=== PATIENT | male | born 1960 | race Caucasian/White ===

== ENCOUNTER 2020-03-23 09:00 | Outpatient (CLI) | payer OTHER, SELFPAY ==
[2020-03-23 09:19] LABS: Add Urine Microscopic? YES; Appearance Urine Clear (Clear); Basophils Absolute Auto 0.09 K/mm3 (0.00-0.10); Basophils Percent Auto 1.2 % (0.0-1.0); Bilirubin Urine Negative (Negative); Blood Urine Negative (Negative); Color Urine Yellow (Yellow); Eosinophils Percent Auto 1.3 % (1.0-6.0); Glucose Urine UA Negative (Negative); Hematocrit 41.5 % (40.0-54.0); Hemoglobin 14.4 g/dL (14.0-18.0); Immature Granulocyte Absolute 0.03 K/mm3 (0.00-0.00); Immature Granulocyte Percent A 0.4 % (0.0-0.0); Ketones Urine Trace (Negative); Leukocyte Esterase Ur Negative (Negative); Lymphocytes Absolute Auto 1.54 K/mm3 (1.10-4.50); Lymphocytes Percent Auto 19.8 % (18.0-42.0); Mean Corpuscular HGB Conc 34.7 g/dL (32.0-36.0); Mean Corpuscular Hemoglobin 31.3 pg (27.0-31.0); Mean Corpuscular Volume 90.2 fL (78.0-102.0); Mean Platelet Volume 7.9 fl (8.7-11.0); Monocytes Absolute Auto 0.91 K/mm3 (0.10-0.90); Monocytes Percent Auto 11.7 % (2.0-11.0); Neutrophils Absolute Auto 5.1 K/mm3 (1.7-7.2); Neutrophils Percent Auto 65.6 % (50.0-70.0); Nitrate Urine Negative (Negative); Platelet Count Result 311 K/mm3 (150-420); Protein Urine Negative (Negative); Red Cell Distribution Width 13.4 % (11.6-14.4); White Blood Count 7.8 K/mm3 (4.8-10.8); pH Urine 7.5 (5.0-8.0)
[2020-03-23 09:32] LABS: RBC Urine 0-2 /hpf (0-2); WBC Urine 0-3 /hpf (0-3)
[2020-03-23 09:33] LABS: Bacteria Urine None seen /hpf
[2020-03-23 10:23] LABS: Alanine Aminotransferase 88 U/L (16-63); Albumin Level 4.3 g/dL (3.4-5.0); Alkaline Phosphatase 67 U/L (46-116); Anion Gap 15.1 mmol/L (7-16); Aspartate Amino Transferase 87 U/L (15-37); Bilirubin,Total 0.7 mg/dL (0.00-1.00); Blood Urea Nitrogen 6 mg/dL (7-18); Calcium 9.4 mg/dL (8.5-10.1); Carbon Dioxide 28 mmol/L (21-32); Chloride 88 mmol/L (98-108); Cholesterol 166 mg/dL (0-200); Estimated Glomerular Filt Rate > 60; Glucose 95 mg/dL (70-99); HDL Direct 108 mg/dL (40-60); LDL Cholesterol Calculated 50 mg/dL (<130); Osmolality Calculated 259 mOsm/kg (285-295); Potassium 5.1 mmol/L (3.5-5.1); Prostate Specific Antigen 0.3 ng/mL (< OR = 4.0); Sodium 126 mmol/L (136-145); Total Protein 7.3 g/dL (6.4-8.2); Triglycerides 39 mg/dL (0-150)
== END 2020-03-23 09:01 | disposition home or self-care (01) ==
PROVIDERS: PCP Internal Medicine; Visit Provider Internal Medicine
DX: I73.9 Peripheral vascular disease, unspecified (principal); I10 Essential (primary) hypertension; Z12.5 Encounter for screening for malignant neoplasm of prostate; Z00.00 Encounter for general adult medical examination without abnormal findings
CPT/HCPCS: 36415; 80053; 80061; 81001; 84153; 85025; G0103

== ENCOUNTER 2020-03-30 14:01 | Outpatient (CLI) | payer OTHER, SELFPAY ==
[2020-03-30 14:15] LABS: Basophils Absolute Auto 0.03 K/mm3 (0.00-0.10); Basophils Percent Auto 0.4 % (0.0-1.0); Eosinophils Absolute Auto 0.14 K/mm3 (0.02-0.50); Eosinophils Percent Auto 1.9 % (1.0-6.0); Hematocrit 38.3 % (40.0-54.0); Hemoglobin 14.2 g/dL (14.0-18.0); Immature Granulocyte Absolute 0.05 K/mm3 (0.00-0.00); Immature Granulocyte Percent A 0.7 % (0.0-0.0); Lymphocytes Absolute Auto 1.42 K/mm3 (1.10-4.50); Lymphocytes Percent Auto 19.4 % (18.0-42.0); Mean Corpuscular HGB Conc 37.1 g/dL (32.0-36.0); Mean Corpuscular Hemoglobin 31.3 pg (27.0-31.0); Mean Corpuscular Volume 84.5 fL (78.0-102.0); Mean Platelet Volume 7.9 fl (8.7-11.0); Monocytes Absolute Auto 0.98 K/mm3 (0.10-0.90); Monocytes Percent Auto 13.4 % (2.0-11.0); Neutrophils Absolute Auto 4.7 K/mm3 (1.7-7.2); Neutrophils Percent Auto 64.2 % (50.0-70.0); Platelet Count Result 288 K/mm3 (150-420); Red Blood Count 4.53 M/mm3 (4.70-6.10); White Blood Count 7.3 K/mm3 (4.8-10.8)
[2020-03-30 15:02] LABS: Alanine Aminotransferase 51 U/L (16-63); Albumin Level 4.2 g/dL (3.4-5.0); Alkaline Phosphatase 64 U/L (46-116); Aspartate Amino Transferase 30 U/L (15-37); Bilirubin,Total 0.8 mg/dL (0.00-1.00); Blood Urea Nitrogen 9 mg/dL (7-18); Calcium 9.1 mg/dL (8.5-10.1); Carbon Dioxide 27 mmol/L (21-32); Estimated Glomerular Filt Rate > 60; Glucose 96 mg/dL (70-99); Magnesium 1.8 mg/dL (1.8-2.4); Phosphorus 3.4 mg/dL (2.6-4.7)
[2020-03-30 15:08] LABS: Chloride 74 mmol/L (98-108); Potassium 3.9 mmol/L (3.5-5.1)
[2020-03-30 15:24] LABS: Anion Gap 12.9 mmol/L (7-16); Osmolality Calculated 228 mOsm/kg (285-295); Sodium 110 mmol/L (136-145)
== END 2020-03-30 14:02 | disposition home or self-care (01) ==
LOC: CHSLAB 14:03
PROVIDERS: PCP Internal Medicine; Visit Provider Internal Medicine
DX: R19.7 Diarrhea, unspecified (principal); R11.10 Vomiting, unspecified
CPT/HCPCS: 36415; 80053; 83735; 84100; 85025

== ENCOUNTER 2020-03-30 15:46 | Inpatient (IN) | payer OTHER, SELFPAY ==
[2020-03-30] VITALS (7 sets, daily range): BP systolic 125–166; BP diastolic 86–95; PULSE 84–91; RESP 16–20; TEMP 36.6–37.2; O2SAT 98–100; BMI 19.5
--- NOTE | 2020-03-30 16:18 | ED.GENADULT ---
HPI - General Adult General Chief complaint: Recheck/Abnormal Lab/Rx Stated complaint: sent from [place], low sodium Source: patient and family Mode of arrival: ambulatory Limitations: no limitations History of Present Illness HPI narrative: 59-year-old male patient was sent to the ER by his primary care physician for treatment of low sodium. The patient states that for the last week or so he has not been feeling well, has had multiple episodes of diarrhea, nausea and abdominal cramps. States that he has been vomiting for 3-4 days during his illness but none in the last 4 5 days. He states that his fluid intake has been minimal. Patient denies any episodes of dizziness or passing-out . patient states that he is a smoker of a pack and a half every day and states that he has cut back and used to smoke much more than that. Patient admits to drinking 10-15 beers every day but has not had any alcoholic beverage in the last 5 days according to the patient as well as his family. He denies any chest pain, abdominal pain, or shortness of breath at this time. Patient went to see his doctor this morning and had outpatient labs done around 2:00 a.m. and he was called back to return to the ER for some IV fluids because his sodium was noted to be low . Related Data Home Medications Medication Instructions Recorded Confirmed lisinopril 20 mg PO DAILY 03/30/20 03/30/20 Allergies Allergy/AdvReac Type Severity Reaction Status Date / Time NO KNOWN DRUG ALLERGIES Allergy Y Uncoded 03/24/03 15:34 (Class Allergy) Review of Systems Review of Systems: All systems reviewed & are unremarkable except as noted in HPI and below Constitutional: Constitutional: Reports as per HPI, Reports fatigue and Reports weakness Eyes: Eyes: Reports no additional eye complaints ENT: Reports system reviewed and no additional complaints, except as documented Gastrointestinal: Gastrointestinal: Reports as per HPI and Reports no additional gastrointestinal complaints Genitourinary: Genitourinary: Reports no additional male genitourinary complaints Musculoskeletal: Musculoskeletal: Reports no additional musculoskeletal complaints Integumentary/Breasts: Skin/Breast: Reports system reviewed and no additional complaints, except as docu Neurologic: Reports system reviewed and no additional complaints, except as documented Psychiatric: Psychiatric: Reports anxiety Endocrine: Endocrine: Reports no additional endocrine complaints Hematologic/Lymphatic: Hematologic/Lymphatic: Reports no additional hematologic/lymphatic complaints Allergic/Immunologic: Allergic/Immunologic: Reports no additional allergic/immunologic complaints [facility] Past Medical History Medical History (Updated 03/30/20 @ 16:34 by Gris Hyde MD) Anxiety Hypertension Surgical History Surgical History (Updated 03/30/20 @ 16:34 by Gris Hyde MD) History of aorto-femoral bypass Family History Family History (Updated 03/25/18 @ 08:07 by DOCTOR UNKNOWN) Father Diabetes mellitus Sibling Family history of hypercholesterolemia Hypertension Family history of coronary artery disease Social History Social History Smoking status: Current every day smoker Alcohol intake: current Exam Const: General: no acute distress, alert and ill appearing Nutritional Appearance: thin Orientation/consciousness: patient oriented x3 HENMT: Head: normal to inspection Eyes: Conjunctivae: conjunctivae normal Pupils: Equal, round and reactive pupils present EOM: EOMs intact bilaterally Neck: Neck: normal visual inspection and no lymphadenopathy Chest: Chest palpation & inspection: normal inspection of the chest Resp: Effort & Inspection: normal respiratory effort Auscultation: clear to auscultation bilaterally Cardio: Rate: regular rate Rhythm: regular rhythm GI: GI Palp: Yes Soft to palpation Percussion: Yes normal to percussion Auscultation: normal bowel sound
[2020-03-30] MEDS: SODIUM CHLORIDE 0.9% IV 1,000 ML 999 ML IV CONT (16:19)
--- NOTE | 2020-03-30 16:22 | ECG_ITS ---
Measurements Intervals [place] Rate: 86 P: -64 VT: 140 QRS: -80 QRSD: 86 T: 71 QT: 359 QTc: 430 Interpretive Statements SINUS OR ECTOPIC ATRIAL RHYTHM INCOMPLETE RIGHT BUNDLE BRANCH BLOCK BASELINE ARTIFACT- II, III, AVF BORDERLINE ECG Electronically Signed On 03-30-2020 16:57:39 CDT by True Olvera D.O.
[2020-03-30 17:47] LABS: Anion Gap 14.4 mmol/L (7-16); Blood Urea Nitrogen 9 mg/dL (7-18); Calcium 8.4 mg/dL (8.5-10.1); Carbon Dioxide 23 mmol/L (21-32); Chloride 77 mmol/L (98-108); Estimated CRCL calculation 81 ml/min; Estimated Glomerular Filt Rate > 60; Glucose 87 mg/dL (70-99); Osmolality Calculated 229 mOsm/kg (285-295); Potassium 3.4 mmol/L (3.5-5.1)
[2020-03-30 17:48] LABS: Sodium 111 mmol/L (136-145)
--- NOTE | 2020-03-30 18:41 | ADMGEN ---
This patient, Andrea Kearns, was admitted to 2nd Floor Room 204-2. Patient/family oriented to hospital policies and general routines including ID bracelet, bed and alarms, visiting hours, pain management, procedures, bathroom and other care routines, personal items, smoking policy, room service/diet, and visiting hours. Valuables list has been completed. Information on how to activate the Rapid Response Team has been discussed. Patient/Family are encouraged to report perceived risks to care and to ask questions if they do not understand what they are told or what they should do.
[2020-03-30] MEDS: SODIUM CHLORIDE 0.9% IV 1,000 ML 120 ML IV CONT (19:04)
--- NOTE | 2020-03-30 23:44 | PC.NURSE ---
Denies discomfort. IV continues 120mh hr 0.9NS. Needed objects in reach.
--- NOTE | 2020-03-31 00:13 | PC.NURSE ---
Sleeping, resp even. IV continues 120ml hr 0.9NS.
--- NOTE | 2020-03-31 01:02 | PC.NURSE ---
Dr. Hyde called to give new medication orders on pt. Orders received and noted.
[2020-03-31] MEDS: POTASSIUM CHLORIDE 20 MEQ TABLET 40 MEQ PO (01:21)
--- NOTE | 2020-03-31 01:24 | PC.NURSE ---
40meq KCL po given per order @ this time. IV continues 0.9NS @ 120ml hr
--- NOTE | 2020-03-31 02:23 | PC.NURSE ---
Sleeping resp even IV continues 12-0ml hr 0.9NS.
[2020-03-31] MEDS: SODIUM CHLORIDE 0.9% IV 1,000 ML 120 ML IV CONT ×3 (03:20→20:52)
--- NOTE | 2020-03-31 03:28 | PC.NURSE ---
New IV bag of fluids up @ this time. 300ml restrection of water for this shift continues.
[2020-03-31 04:00] VITALS: BP 136/77; PULSE 84; RESP 16; TEMP 36.6; O2SAT 97
[2020-03-31 05:51] LABS: Add Urine Microscopic? YES; Appearance Urine Clear (Clear); Bilirubin Urine Negative (Negative); Blood Urine Negative (Negative); Color Urine Yellow (Yellow); Glucose Urine UA Negative (Negative); Ketones Urine 1+ (Negative); Leukocyte Esterase Ur Negative (Negative); Nitrate Urine Negative (Negative); Protein Urine Negative (Negative); pH Urine 6.5 (5.0-8.0)
--- NOTE | 2020-03-31 05:59 | PC.NURSE ---
Up to Bathroom, assist of one. Gait steady No tremors noted. Pt voided lg amt carola urine & experlled lg brown liquid & formed pieces of stool. Pt stated he is feeling better this am. IV continues 120ml 0.9NS. Urine specimen to lab.
[2020-03-31 06:03] LABS: Anion Gap 11.8 mmol/L (7-16); Blood Urea Nitrogen 6 mg/dL (7-18); Carbon Dioxide 23 mmol/L (21-32); Chloride 84 mmol/L (98-108); Estimated CRCL calculation 86 ml/min; Estimated Glomerular Filt Rate > 60; Glucose 90 mg/dL (70-99); Osmolality Calculated 237 mOsm/kg (285-295); Potassium 3.8 mmol/L (3.5-5.1)
[2020-03-31 06:06] LABS: RBC Urine 0-2 /hpf (0-2); Sodium 115 mmol/L (136-145); Squamous Epithelial Cell Urine None seen /hpf (Few); WBC Urine 0-3 /hpf (0-3)
[2020-03-31 06:07] LABS: Bacteria Urine None seen /hpf
--- NOTE | 2020-03-31 06:07 | PC.NURSE ---
Lab called to report critical sodium value of 115.
[2020-03-31 07:40] VITALS: BP 157/95; PULSE 87; RESP 16; TEMP 36.6; O2SAT 99
[2020-03-31 08:50] LABS: Alanine Aminotransferase 50 U/L (16-63); Albumin Level 3.5 g/dL (3.4-5.0); Alkaline Phosphatase 53 U/L (46-116); Aspartate Amino Transferase 34 U/L (15-37); Bilirubin Direct 0.2 mg/dL (0-0.2); Bilirubin,Total 0.7 mg/dL (0.00-1.00); Magnesium 1.7 mg/dL (1.8-2.4); Total Protein 6.1 g/dL (6.4-8.2)
--- NOTE | 2020-03-31 09:20 | PM.IMHP ---
H&P: HPI History of Present Illness Chief complaint: hyponatremia Narrative: Andrea Kearns is a 59 year old male that was sent to the ED from his primary care physician Dr. Garrison office due to hyponatremia. According to the patient for approximately 1 week he has been feeling weak with nausea vomiting and abdominal pain. patient noted that he did not do anything at to relieve the symptoms. he did make an appointment with his primary care physician. patient noted that previously before admission he had a combination of nausea vomiting diarrhea and abdominal pain. He does drink 10-15 beers a day but due to his nausea vomiting and abdominal pain has not been able to drink for the last couple of days. Patient noted that he has never experienced these symptoms before. He also noted that he was lightheaded for the last couple days sitting and standing. Patient's vital signs are 136/77, 84, 16, 98 and 97% on room air. While in the ED an EKG was completed normal sinus rhythm the patient received 1 L of fluids. patient is being admitted for dehydration and hyponatremia. Patient denies SOB, CP, palpitation, extremity numbness, lightheadness, dizziness, constipation, diarrhea, nausea vomiting, abdominal pain, chills or fever. Review of Systems Review of Systems: Narrative: CONSTITUTIONAL :No weight loss, fever, chills, weakness or fatigue.: HEENT: Eyes: No diplopia or blurred vision. ENT: No earache, sore throat or runny nose. CARDIOVASCULAR: No pressure, squeezing, strangling, tightness, heaviness or aching about the chest, neck, axilla or epigastrium. RESPIRATORY: No cough, shortness of breath, PND or orthopnea. GASTROINTESTINAL: No nausea, vomiting or diarrhea. GENITOURINARY: No dysuria, frequency or urgency. MUSCULOSKELETAL: No muscle, back pain, joint pain or stiffness. SKIN: No change in skin, hair or nails. NEUROLOGIC: No paresthesias, fasciculations, seizures or weakness. PSYCHIATRIC: No disorder of thought or mood. ENDOCRINE: No heat or cold intolerance, polyuria or polydipsia. HEMATOLOGICAL: No easy bruising or bleeding. [facility] Past Medical History Medical History (Updated 03/31/20 @ 09:46 by MARANDA Jaime) Alcohol abuse Anxiety Hypertension Hyponatremia Surgical History Surgical History (Updated 03/30/20 @ 16:34 by Gris Hyde MD) History of aorto-femoral bypass Family History Family History (Updated 03/25/18 @ 08:07 by DOCTOR UNKNOWN) Father Diabetes mellitus Sibling Family history of hypercholesterolemia Hypertension Family history of coronary artery disease Social History Social History Smoking packs per day: 1 Smoking cigarettes per day: 20.0 Smoking status: Current every day smoker Tobacco type: cigarettes Alcohol intake: current Drinks per week: 15 Substance use: never Gender identity (if verbalized by the patient): Male Spiritual care concerns: No Meds Home Medications and Allergies Home Medications Medication Instructions Recorded Confirmed Type lisinopril 20 mg PO DAILY 03/30/20 03/30/20 History Allergies Allergy/AdvReac Type Severity Reaction Status Date / Time NO KNOWN DRUG ALLERGIES Allergy Y Uncoded 03/24/03 15:34 (Class Allergy) Vital Signs Vital Signs - 24 hr 03/30/20 16:00 03/30/20 17:23 03/30/20 18:19 Temperature 97.8 F Pulse Rate 89 89 90 Respiratory Rate 20 18 18 Blood Pressure 166/90 H 156/86 H 143/92 H Pulse Oximetry 100 99 03/30/20 18:30 03/30/20 20:00 03/30/20 22:00 Temperature 98 F 98.9 F 98.8 F Pulse Rate 91 86 88 Respiratory Rate 18 16 16 Blood Pressure 156/93 H 125/86 160/95 H Pulse Oximetry 100 98 98 03/30/20 23:42 03/31/20 04:00 03/31/20 07:40 Temperature 97.9 F 98 F 97.8 F Pulse Rate 84 84 87 Respiratory Rate 16 16 16 Blood Pressure 157/95 H 136/77 157/95 H Pulse Oximetry 99 97 99 Exam Narrative: Exam Narrative: General: frail male sitting up in bed no acute
[2020-03-31] MEDS: lisinopriL 20 MG TABLET PO (09:37)
[2020-03-31] MEDS: ENOXAPARIN 40 MG/0.4 ML SYRINGE SUB-Q (10:06)
[2020-03-31] MEDS: THIAMINE HCL 100 MG TABLET PO (10:06)
[2020-03-31] MEDS: FOLIC ACID 1 MG TABLET PO (10:07)
[2020-03-31] MEDS: MAGNESIUM SULF 2 GM/WATER 50ML 2 GM/50 ML BAG IVPB (10:07)
[2020-03-31] MEDS: PANTOPRAZOLE SOD SESQUIHYDRATE 20 MG TAB PO (10:24)
--- NOTE | 2020-03-31 12:34 | PCDIET ---
Changed to IP status per Linda, Care Coordination.
[2020-03-31 13:39] LABS: Hematocrit 32.8 % (40.0-54.0); Mean Corpuscular HGB Conc 36.6 g/dL (32.0-36.0); Mean Corpuscular Hemoglobin 31.7 pg (27.0-31.0); Mean Corpuscular Volume 86.5 fL (78.0-102.0); Mean Platelet Volume 7.8 fl (8.7-11.0); Platelet Count Result 220 K/mm3 (150-420); Red Blood Count 3.79 M/mm3 (4.70-6.10); Red Cell Distribution Width 12.2 % (11.6-14.4); White Blood Count 6.1 K/mm3 (4.8-10.8)
[2020-03-31 14:09] LABS: Alanine Aminotransferase 44 U/L (16-63); Albumin Level 3.2 g/dL (3.4-5.0); Alkaline Phosphatase 56 U/L (46-116); Anion Gap 11.5 mmol/L (7-16); Aspartate Amino Transferase 27 U/L (15-37); Bilirubin,Total 0.4 mg/dL (0.00-1.00); Blood Urea Nitrogen 6 mg/dL (7-18); Calcium 7.8 mg/dL (8.5-10.1); Carbon Dioxide 24 mmol/L (21-32); Chloride 88 mmol/L (98-108); Estimated CRCL calculation 71 ml/min; Estimated Glomerular Filt Rate > 60; Glucose 109 mg/dL (70-99); Osmolality Calculated 248 mOsm/kg (285-295); Potassium 3.5 mmol/L (3.5-5.1); Total Protein 5.7 g/dL (6.4-8.2)
[2020-03-31 14:15] LABS: Magnesium 2.1 mg/dL (1.8-2.4); Sodium 120 mmol/L (136-145)
--- NOTE | 2020-03-31 14:15 | PC.NURSE ---
RIGOBERTO PURI HEADING UP MACHINE OPERATOR NOTIFIED OF CRIITICAL LOW SODIUM 120.
[2020-03-31 16:00] VITALS: BP 156/88; PULSE 82; RESP 16; TEMP 36.8; O2SAT 98
[2020-03-31] MEDS: traZODone HCL 25 MG TABLET PO (20:48)
--- NOTE | 2020-03-31 23:52 | PM.EVENT ---
Event Note Event Note Event Note: I have examined the patient and reviewed the chart. I discussed the patient's care with Martha Leach APN and agree with her assessment and plan.
[2020-04-01] VITALS: BP 119/64; PULSE 76; RESP 16; TEMP 36.8; O2SAT 97
[2020-04-01 05:29] LABS: Basophils Absolute Auto 0.05 K/mm3 (0.00-0.10); Basophils Percent Auto 0.9 % (0.0-1.0); Eosinophils Absolute Auto 0.09 K/mm3 (0.02-0.50); Eosinophils Percent Auto 1.6 % (1.0-6.0); Hematocrit 34.3 % (40.0-54.0); Hemoglobin 12.3 g/dL (14.0-18.0); Immature Granulocyte Absolute 0.03 K/mm3 (0.00-0.00); Immature Granulocyte Percent A 0.5 % (0.0-0.0); Lymphocytes Absolute Auto 1.28 K/mm3 (1.10-4.50); Lymphocytes Percent Auto 22.5 % (18.0-42.0); Mean Corpuscular HGB Conc 35.9 g/dL (32.0-36.0); Mean Corpuscular Hemoglobin 31.5 pg (27.0-31.0); Mean Corpuscular Volume 87.9 fL (78.0-102.0); Mean Platelet Volume 7.8 fl (8.7-11.0); Monocytes Absolute Auto 0.74 K/mm3 (0.10-0.90); Neutrophils Absolute Auto 3.5 K/mm3 (1.7-7.2); Neutrophils Percent Auto 61.5 % (50.0-70.0); Platelet Count Result 244 K/mm3 (150-420); Red Cell Distribution Width 12.4 % (11.6-14.4); White Blood Count 5.7 K/mm3 (4.8-10.8)
[2020-04-01 05:44] LABS: Alanine Aminotransferase 40 U/L (16-63); Albumin Level 3.2 g/dL (3.4-5.0); Alkaline Phosphatase 44 U/L (46-116); Anion Gap 10.6 mmol/L (7-16); Aspartate Amino Transferase 27 U/L (15-37); Bilirubin,Total 0.4 mg/dL (0.00-1.00); Blood Urea Nitrogen 5 mg/dL (7-18); Carbon Dioxide 25 mmol/L (21-32); Chloride 94 mmol/L (98-108); Estimated CRCL calculation 79 ml/min; Estimated Glomerular Filt Rate > 60; Glucose 94 mg/dL (70-99); Magnesium 1.8 mg/dL (1.8-2.4); Osmolality Calculated 259 mOsm/kg (285-295); Potassium 3.6 mmol/L (3.5-5.1); Sodium 126 mmol/L (136-145); Total Protein 5.6 g/dL (6.4-8.2)
[2020-04-01] MEDS: SODIUM CHLORIDE 0.9% IV 1,000 ML 120 ML IV CONT (05:58)
[2020-04-01 07:34] VITALS: BP 149/88; PULSE 76; RESP 18; TEMP 36.6; O2SAT 99
--- NOTE | 2020-04-01 07:55 | PM.DS ---
DS: Admitting Diagnosis Admitting Diagnosis Admitting Diagnosis: Anxiety disorder, unspecified DS: Discharge Diagnosis Discharge Diagnosis (1) Anxiety: Code(s): F41.9 - Anxiety disorder, unspecified Status: Acute Assessment and Plan: Stable (2) Hypertension: Code(s): I10 - Essential (primary) hypertension Status: Acute Assessment and Plan: patient blood pressure stable continue lisinopril (3) Hyponatremia: Code(s): E87.1 - Hypo-osmolality and hyponatremia Status: Acute Assessment and Plan: patient's sodium 110 on admission currently 126 which is patient's baseline appears to be chronic patient previously sodium 126 possibly secondary to alcohol abuse versus gastroenteritis (4) Alcohol abuse: Code(s): F10.10 - Alcohol abuse, uncomplicated Status: Acute Assessment and Plan: added thiamine and folic acid consult to case coordination for referral is for counseling educated cessation alcohol (5) DVT prophylaxis: Code(s): Z29.9 - Encounter for prophylactic measures, unspecified Status: Acute Assessment and Plan: started Lovenox (6) Dehydration: Code(s): E86.0 - Dehydration Status: Acute Assessment and Plan: resolved possibly secondary to gastroenteritis versus alcohol abuse (7) Weakness: Code(s): R53.1 - Weakness Status: Acute Assessment and Plan: resolved secondary to nausea vomiting and diarrhea possibly caused by gastroenteritis patient hydrated patient declines physical therapy/occupational therapy DS: Summary Hospital Course Reason for hospitalization: Andrea Kearns is a 59 year old male that was sent to the ED from his primary care physician Dr. Garrison office due to hyponatremia. According to the patient for approximately 1 week he haD been feeling weak with nausea vomiting and abdominal pain. patient noted that he did not do anything at to relieve the symptoms. he did make an appointment with his primary care physician. patient noted that previously before his admission he had a combination of nausea vomiting diarrhea and abdominal pain. He does drink 10-15 beers a day but due to his nausea vomiting and abdominal pain he had not been able to drink for the last couple of days. Patient noted that he has never experienced these symptoms before. He also noted that he was lightheaded for the last couple days sitting and standing. today patient is symptoms have resolved he no longer has abdominal pain nausea vomiting or diarrhea. he was hydrated this visit be IV fluids his potassium on admission was 115 and is currently 126 which is his baseline. He will be discharged home and to follow-up with his primary care physician. Patient able to tolerate all meals , slept well and ambulate at baseline. Patient denies SOB, CP, palpitation, extremity numbness, lightheadness, dizziness, constipation, diarrhea, chills or fever. Patient agree that they are ready for discharge and discharge plan. Time Spent with Patient Time attestation: Total time spent providing and/or coordinating discharge services:60 Exam Narrative: Exam Narrative: General: frail male sitting up in bed no acute distress. HEENT: Normocephalic, atraumatic. PERRL, EOMI. Sclerae anicteric. Oral mucosa moist. Oropharynx clear. Neck: Supple. Respiratory: Lungs are clear to auscultation bilaterally. Cardiovascular: Regular rate and rhythm Gastrointestinal: Abdomen is soft, nontender, and nondistended with positive bowel sounds. No organomegaly. Skin: Warm, dry, and slightly pale.. No rash or lesions on limited exam. Extremities: No cyanosis, clubbing, or edema. Radial and pedal pulses intact. Neurological: Alert. Cranial nerves 2-12 are grossly intact. No gross focal deficits to casual conversation. Psychiatric: Pleasant and cooperative with normal mood and affect
[2020-04-01] MEDS: ENOXAPARIN 40 MG/0.4 ML SYRINGE SUB-Q (08:54)
[2020-04-01] MEDS: THIAMINE HCL 100 MG TABLET PO (08:55)
[2020-04-01] MEDS: PANTOPRAZOLE SOD SESQUIHYDRATE 20 MG TAB PO (08:56)
[2020-04-01] MEDS: FOLIC ACID 1 MG TABLET PO (08:56)
[2020-04-01] MEDS: lisinopriL 20 MG TABLET PO (08:56)
--- NOTE | 2020-04-01 11:05 | PC.NURSE ---
Patient taken to Main Entrance per wheelchair, daughter Lauren arrived to transport patient home per private vehicle.
== END 2020-04-01 11:05 | disposition home or self-care (01) | DRG 426 ==
LOC: CHSED 18:02 → CHS2ND 18:15
PROVIDERS: Nurse Practitioner; Admitting Provider Emergency Medicine; Emergency Provider Emergency Medicine; PCP Internal Medicine; Visit Provider Emergency Medicine
DX: E87.1 Hypo-osmolality and hyponatremia (principal); E86.0 Dehydration; R53.1 Weakness; I10 Essential (primary) hypertension; F41.9 Anxiety disorder, unspecified; F10.10 Alcohol abuse, uncomplicated
CPT/HCPCS: 36415; 80048; 80053; 80076; 81001; 83735; 85025; 85027; 93005; 96360; 96361; 96365; 96372; 99283; 99285; A9270; G0378; G0379; J1650; J3475; J7030

== ENCOUNTER 2020-04-08 08:26 | Outpatient (CLI) | payer OTHER, SELFPAY ==
--- NOTE | ~2020-04-08 | CT_ITS ---
EXAMINATION: CT brain wo con DATE: 04/08/2020 08:50 INDICATION: Cognitive impairment TECHNIQUE: Computed tomography (CT) of the head was performed without intravenous contrast. The mA wa s adjusted according to patient size. Iterative reconstruction technique was employed. Exam dose: 60 5.33 mGy-cm total exam DLP. COMPARISON: None FINDINGS: No intracranial mass lesion or hemorrhage or cerebrovascular accident. There is diminished attenuation of the subcortical and deep white matter, nonspecific, likely due to chronic small vessel ischemic changes. No subdural or epidural hematoma. There is central and cortical atrophy. No fracture or bone destruction of the cranial vault. There is mild mucoperiosteal thickening of the left maxillary sinus and the right ethmoid air cells primarily. The paranasal sinuses and mastoid air cells are otherwise unremarkable. IMPRESSION: Likely chronic small vessel ischemic changes of the cerebral white matter and cerebral a trophy; no acute intracranial finding Reviewed, dictated and finalized at [facility]. Reviewed, dictated and finalized at location B. IMPRESSION: Likely chronic small vessel ischemic changes of the cerebral white matter and cerebral atrophy; no acute intracranial finding
--- NOTE | ~2020-04-08 | XR_ITS ---
EXAMINATION: XR chest 2V DATE: 04/08/2020 08:50 INDICATION: Hyponatremia. Cognitive impairment. TECHNIQUE: Frontal and lateral views of the chest were obtained. COMPARISON: Chest 2 views 10/15/2015, chest CT 07/14/2019 FINDINGS: The lungs are hyperexpanded with lucencies, consistent with emphysema. Calcified pulmonary nodules are consistent with old granulomatous disease. No pleural effusion or pneumothorax. The heart size is normal. IMPRESSION: 1. Emphysema. Reviewed, dictated and finalized at location A. IMPRESSION: 1. Emphysema.
[2020-04-08 08:40] LABS: Sodium Urine Random 51 mmol/L (20-110)
[2020-04-08 09:12] LABS: Alanine Aminotransferase 26 U/L (16-63); Albumin Level 3.7 g/dL (3.4-5.0); Alkaline Phosphatase 45 U/L (46-116); Anion Gap 11.5 mmol/L (7-16); Aspartate Amino Transferase 22 U/L (15-37); Bilirubin,Total 0.2 mg/dL (0.00-1.00); Blood Urea Nitrogen 12 mg/dL (7-18); Calcium 8.6 mg/dL (8.5-10.1); Carbon Dioxide 27 mmol/L (21-32); Chloride 95 mmol/L (98-108); Estimated Glomerular Filt Rate > 60; Glucose 95 mg/dL (70-99); Osmolality Calculated 267 mOsm/kg (285-295); Potassium 4.5 mmol/L (3.5-5.1); Sodium 129 mmol/L (136-145); Thyroid Stimulating Hormone 1.81 uIU/mL (0.36-3.74)
[2020-04-14 05:04] LABS: Osmolality, Urine 190 mOsm/kg (50-1200)
== END 2020-04-08 08:27 | disposition home or self-care (01) ==
LOC: CHSLAB 08:28
PROVIDERS: PCP Internal Medicine; Visit Provider Internal Medicine
DX: E87.1 Hypo-osmolality and hyponatremia (principal); G31.84 Mild cognitive impairment of uncertain or unknown etiology
CPT/HCPCS: 36415; 70450; 71046; 80053; 83930; 83935; 84300; 84443

== ENCOUNTER 2020-04-15 11:36 | Outpatient (CLI) | payer OTHER, SELFPAY ==
[2020-04-15 12:37] LABS: Anion Gap 10.4 mmol/L (7-16); Blood Urea Nitrogen 14 mg/dL (7-18); Calcium 8.9 mg/dL (8.5-10.1); Carbon Dioxide 28 mmol/L (21-32); Chloride 97 mmol/L (98-108); Estimated Glomerular Filt Rate > 60; Glucose 81 mg/dL (70-99); Osmolality Calculated 271 mOsm/kg (285-295); Potassium 4.4 mmol/L (3.5-5.1); Sodium 131 mmol/L (136-145)
== END 2020-04-15 11:37 | disposition home or self-care (01) ==
LOC: CHSLAB 11:39
PROVIDERS: PCP Internal Medicine; Visit Provider Internal Medicine
DX: E87.1 Hypo-osmolality and hyponatremia (principal); I10 Essential (primary) hypertension
CPT/HCPCS: 36415; 80048

== ENCOUNTER 2020-11-05 09:04 | Outpatient (CLI) | payer OTHER, SELFPAY ==
[2020-11-05 10:05] LABS: Alanine Aminotransferase 26 U/L (16-63); Albumin Level 4.3 g/dL (3.4-5.0); Alkaline Phosphatase 61 U/L (46-116); Anion Gap 10 mmol/L (8-16); Aspartate Amino Transferase 21 U/L (15-37); Bilirubin,Total 0.7 mg/dL (0.00-1.00); Blood Urea Nitrogen 7 mg/dL (7-18); Calcium 9.3 mg/dL (8.5-10.1); Carbon Dioxide 26 mmol/L (21-32); Chloride 91 mmol/L (98-108); Estimated Glomerular Filt Rate > 60; Glucose 93 mg/dL (70-99); Osmolality Calculated 262 mOsm/kg (285-295); Potassium 4.9 mmol/L (3.5-5.1); Sodium 127 mmol/L (136-145); Total Protein 7.4 g/dL (6.4-8.2)
== END 2020-11-05 09:05 | disposition home or self-care (01) ==
LOC: CHSLAB 09:06
PROVIDERS: PCP Internal Medicine; Visit Provider Internal Medicine
DX: E87.1 Hypo-osmolality and hyponatremia (principal)
CPT/HCPCS: 36415; 80053

== ENCOUNTER 2020-11-12 11:16 | Outpatient (CLI) | payer OTHER, SELFPAY ==
[2020-11-12 12:08] LABS: Alanine Aminotransferase 31 U/L (16-63); Albumin Level 4.3 g/dL (3.4-5.0); Alkaline Phosphatase 63 U/L (46-116); Anion Gap 10 mmol/L (8-16); Aspartate Amino Transferase 22 U/L (15-37); Bilirubin,Total 0.4 mg/dL (0.00-1.00); Blood Urea Nitrogen 9 mg/dL (7-18); Calcium 9.4 mg/dL (8.5-10.1); Carbon Dioxide 28 mmol/L (21-32); Chloride 92 mmol/L (98-108); Estimated Glomerular Filt Rate > 60; Glucose 102 mg/dL (70-99); Osmolality Calculated 268 mOsm/kg (285-295); Sodium 130 mmol/L (136-145); Total Protein 8.2 g/dL (6.4-8.2)
== END 2020-11-12 11:17 | disposition home or self-care (01) ==
LOC: CHSLAB 11:17
PROVIDERS: PCP Internal Medicine; Visit Provider Internal Medicine
DX: I10 Essential (primary) hypertension (principal)
CPT/HCPCS: 36415; 80053

== ENCOUNTER 2020-11-19 09:05 | Outpatient (CLI) | payer OTHER, SELFPAY ==
[2020-11-19 10:06] LABS: Alanine Aminotransferase 25 U/L (16-63); Albumin Level 4.2 g/dL (3.4-5.0); Alkaline Phosphatase 67 U/L (46-116); Anion Gap 10 mmol/L (8-16); Aspartate Amino Transferase 21 U/L (15-37); Bilirubin,Total 0.7 mg/dL (0.00-1.00); Blood Urea Nitrogen 10 mg/dL (7-18); Calcium 9.1 mg/dL (8.5-10.1); Carbon Dioxide 26 mmol/L (21-32); Chloride 89 mmol/L (98-108); Estimated Glomerular Filt Rate > 60; Glucose 125 mg/dL (70-99); Osmolality Calculated 260 mOsm/kg (285-295); Sodium 125 mmol/L (136-145); Total Protein 7.2 g/dL (6.4-8.2)
== END 2020-11-19 09:06 | disposition home or self-care (01) ==
LOC: CHSLAB 09:07
PROVIDERS: PCP Internal Medicine; Visit Provider Internal Medicine
DX: E87.1 Hypo-osmolality and hyponatremia (principal)
CPT/HCPCS: 36415; 80053

== ENCOUNTER 2020-12-01 08:20 | Outpatient (CLI) | payer OTHER, SELFPAY ==
--- NOTE | ~2020-12-01 | MR_ITS ---
EXAMINATION: MR brain/brain stem wo con DATE: 12/01/2020 10:00 INDICATION: Confusion. TECHNIQUE: Magnetic resonance imaging (MRI) of the brain and brainstem was performed without intraven ous contrast. Sequences included sagittal and axial T1-weighted FSE, axial diffusion-weighted FS EPI, axial T2*-weighted GRE, axial T2-weighted FLAIR Propeller, and axial T2-weighted Propeller. Apparent diffusion coefficient (ADC) maps were created. COMPARISON: Head CT 04/08/2020 FINDINGS: There are scattered areas of nonspecific increased T2-weighted signal intensity in the cere bral white matter and shanika. There is no intracranial hemorrhage, acute infarction, or abnormal intrac ranial mass lesion. The ventricles are normal in size. There is mucosal thickening in the paranasal s inuses. There are bilateral mastoid effusions. IMPRESSION: 1. Moderate nonspecific cerebral white matter disease and pontine disease, which likely represents ch ronic small vessel ischemic disease. Reviewed, dictated and finalized at location A. G FRAME GRINDER OPERATOR IMPRESSION: 1. Moderate nonspecific cerebral white matter disease and pontine disease, whic h likely represents chronic small vessel ischemic disease.
== END 2020-12-01 08:21 | disposition home or self-care (01) ==
LOC: CHSIMG 08:21
PROVIDERS: PCP Internal Medicine; Visit Provider Internal Medicine
DX: R41.0 Disorientation, unspecified (principal)
CPT/HCPCS: 70551

== ENCOUNTER 2020-12-06 08:21 | Outpatient (CLI) | payer OTHER, SELFPAY ==
[2020-12-06 08:30] LABS: Basophils Absolute Auto 0.09 K/mm3 (0.00-0.10); Basophils Percent Auto 0.9 % (0.0-1.0); Eosinophils Absolute Auto 0.09 K/mm3 (0.02-0.50); Eosinophils Percent Auto 0.9 % (1.0-6.0); Hematocrit 44.2 % (40.0-54.0); Hemoglobin 14.4 g/dL (14.0-18.0); Immature Granulocyte Absolute 0.04 K/mm3 (0.00-0.00); Immature Granulocyte Percent A 0.4 % (0.0-0.0); Lymphocytes Absolute Auto 2.44 K/mm3 (1.10-4.50); Lymphocytes Percent Auto 23.1 % (18.0-42.0); Mean Corpuscular HGB Conc 32.6 g/dL (32.0-36.0); Mean Corpuscular Hemoglobin 29.8 pg (27.0-31.0); Mean Corpuscular Volume 91.3 fL (78.0-102.0); Mean Platelet Volume 7.7 fl (8.7-11.0); Monocytes Absolute Auto 1.06 K/mm3 (0.10-0.90); Neutrophils Absolute Auto 6.9 K/mm3 (1.7-7.2); Neutrophils Percent Auto 64.7 % (50.0-70.0); Platelet Count Result 317 K/mm3 (150-420); Red Blood Count 4.84 M/mm3 (4.70-6.10); Red Cell Distribution Width 13.2 % (11.6-14.4); White Blood Count 10.6 K/mm3 (4.8-10.8)
[2020-12-06 10:17] LABS: Alanine Aminotransferase 26 U/L (16-63); Alkaline Phosphatase 52 U/L (46-116); Anion Gap 8 mmol/L (8-16); Aspartate Amino Transferase 13 U/L (15-37); Bilirubin,Total 0.6 mg/dL (0.00-1.00); Blood Urea Nitrogen 17 mg/dL (7-18); Carbon Dioxide 28 mmol/L (21-32); Chloride 96 mmol/L (98-108); Estimated Glomerular Filt Rate 55; Glucose 56 mg/dL (70-99); Osmolality Calculated 273 mOsm/kg (285-295); Potassium 4.8 mmol/L (3.5-5.1); Sodium 132 mmol/L (136-145)
[2020-12-08 09:59] LABS: RPR Screen Non-Reactive (Non-Reactive)
[2020-12-09 11:41] LABS: Methylmalonic Acid 488 nmol/L (87-318)
== END 2020-12-06 08:22 | disposition home or self-care (01) ==
LOC: CHSLAB 08:22
PROVIDERS: PCP Internal Medicine; Visit Provider Internal Medicine
DX: F03.90 Unspecified dementia, unspecified severity, without behavioral disturbance, psychotic disturbance, mood disturbance, and anxiety (principal)
CPT/HCPCS: 36415; 80053; 83921; 85025; 86592

== ENCOUNTER 2021-01-04 08:55 | Outpatient (CLI) | payer OTHER, SELFPAY ==
[2021-01-04 09:40] LABS: Alanine Aminotransferase 38 U/L (16-63); Albumin Level 4.2 g/dL (3.4-5.0); Alkaline Phosphatase 69 U/L (46-116); Anion Gap 9 mmol/L (8-16); Aspartate Amino Transferase 35 U/L (15-37); Bilirubin,Total 0.7 mg/dL (0.00-1.00); Blood Urea Nitrogen 9 mg/dL (7-18); Calcium 9.1 mg/dL (8.5-10.1); Carbon Dioxide 26 mmol/L (21-32); Chloride 93 mmol/L (98-108); Cholesterol 165 mg/dL (0-200); Estimated Glomerular Filt Rate > 60; Glucose 118 mg/dL (70-99); HDL Direct 88 mg/dL (40-60); LDL Cholesterol Calculated 66 mg/dL (<130); Osmolality Calculated 265 mOsm/kg (285-295); Potassium 4.5 mmol/L (3.5-5.1); Sodium 128 mmol/L (136-145); Total Protein 7.3 g/dL (6.4-8.2); Triglycerides 53 mg/dL (0-150)
== END 2021-01-04 08:56 | disposition home or self-care (01) ==
LOC: CHSLAB 08:57
PROVIDERS: PCP Internal Medicine; Visit Provider Internal Medicine
DX: E87.1 Hypo-osmolality and hyponatremia (principal); I73.9 Peripheral vascular disease, unspecified
CPT/HCPCS: 36415; 80053; 80061

== ENCOUNTER 2021-01-14 09:03 | Outpatient (CLI) | payer OTHER, SELFPAY ==
--- NOTE | ~2021-01-14 | CT_ITS ---
EXAMINATION: CT lung screening DATE: 01/14/2021 09:57 INDICATION: Personal history of tobacco dependence, current smoker with 64 pack year history TECHNIQUE: Computed tomography (CT) of the chest was performed without intravenous contrast. The dose -length product (DLP) was 87.50 mGy-cm. Automated exposure control and iterative reconstruction techn ique were employed. COMPARISON: 07/14/2019 FINDINGS: There is moderate emphysema. There is stable 7 mm nodule in the medial aspect of the right upper lobe on image 50. No new pulmonary nodules are identified. Calcified pulmonary nodules and calc ified subcarinal lymph nodes are consistent with old granulomatous disease. There is no pleural effus ion or pneumothorax. The lungs are free of acute opacities. No pathologically enlarged thoracic lymph nodes are identified. The heart size is normal. Calcified coronary artery atherosclerosis is noted. There is severe spondylosis of the lower cervical spine. IMPRESSION: 1. Lung-RADS category 2: Benign appearance or behavior. Continue annual screening with noncontrast lo w-dose chest CT in 12 months. Reviewed, dictated and finalized at location B. IMPRESSION: 1. Lung-RADS category 2: Benign appearance or behavior. Continue annual screeni ng with noncontrast low-dose chest CT in 12 months.
== END 2021-01-14 09:04 | disposition home or self-care (01) ==
LOC: CHSIMG 09:04
PROVIDERS: PCP Internal Medicine; Visit Provider Internal Medicine
DX: Z12.2 Encounter for screening for malignant neoplasm of respiratory organs (principal); Z87.891 Personal history of nicotine dependence
CPT/HCPCS: 71271

== ENCOUNTER 2021-01-18 09:11 | Outpatient (CLI) | payer OTHER, SELFPAY ==
[2021-01-18 11:05] LABS: Alanine Aminotransferase 29 U/L (16-63); Albumin Level 4.1 g/dL (3.4-5.0); Alkaline Phosphatase 73 U/L (46-116); Anion Gap 9 mmol/L (8-16); Aspartate Amino Transferase 25 U/L (15-37); Bilirubin,Total 0.7 mg/dL (0.00-1.00); Blood Urea Nitrogen 11 mg/dL (7-18); Calcium 9.2 mg/dL (8.5-10.1); Carbon Dioxide 28 mmol/L (21-32); Chloride 94 mmol/L (98-108); Estimated Glomerular Filt Rate > 60; Glucose 88 mg/dL (70-99); Osmolality Calculated 270 mOsm/kg (285-295); Potassium 4.7 mmol/L (3.5-5.1); Sodium 131 mmol/L (136-145); Total Protein 7.1 g/dL (6.4-8.2)
== END 2021-01-18 09:12 | disposition home or self-care (01) ==
LOC: CHSLAB 09:13
PROVIDERS: PCP Internal Medicine; Visit Provider Internal Medicine
DX: E87.1 Hypo-osmolality and hyponatremia (principal)
CPT/HCPCS: 36415; 80053

== ENCOUNTER 2021-01-29 08:00 | Outpatient (CLI) | payer OTHER, SELFPAY | END 2021-01-29 08:01 | disposition home or self-care (01) | LOC: CHSCOVIDVC 08:00 | PROVIDERS: PCP Internal Medicine | DX: Z23 Encounter for immunization (principal) | CPT/HCPCS: 0011A; 91301 ==

== ENCOUNTER 2021-02-16 08:34 | Outpatient (CLI) | payer OTHER, SELFPAY ==
[2021-02-16 09:55] LABS: Alanine Aminotransferase 31 U/L (16-63); Alkaline Phosphatase 71 U/L (46-116); Anion Gap 7 mmol/L (8-16); Aspartate Amino Transferase 23 U/L (15-37); Bilirubin,Total 0.4 mg/dL (0.00-1.00); Blood Urea Nitrogen 7 mg/dL (7-18); Calcium 9.4 mg/dL (8.5-10.1); Carbon Dioxide 29 mmol/L (21-32); Chloride 91 mmol/L (98-108); Estimated Glomerular Filt Rate > 60; Glucose 81 mg/dL (70-99); Osmolality Calculated 261 mOsm/kg (285-295); Potassium 4.4 mmol/L (3.5-5.1); Sodium 127 mmol/L (136-145)
== END 2021-02-16 08:35 | disposition home or self-care (01) ==
PROVIDERS: PCP Internal Medicine; Visit Provider Internal Medicine
DX: E87.1 Hypo-osmolality and hyponatremia (principal)
CPT/HCPCS: 36415; 80053

== ENCOUNTER 2021-02-26 08:00 | Outpatient (CLI) | payer OTHER, SELFPAY | END 2021-02-26 08:01 | disposition home or self-care (01) | LOC: CHSCOVIDVC 08:01 | PROVIDERS: PCP Internal Medicine | DX: Z23 Encounter for immunization (principal) | CPT/HCPCS: 0012A; 91301 ==

== ENCOUNTER 2021-03-18 07:51 | Outpatient (RCR) | payer OTHER, SELFPAY ==
[2021-03-18 08:55] LABS: Alanine Aminotransferase 29 U/L (16-63); Albumin Level 3.7 g/dL (3.4-5.0); Alkaline Phosphatase 63 U/L (46-116); Anion Gap 12 mmol/L (8-16); Aspartate Amino Transferase 19 U/L (15-37); Bilirubin,Total 0.4 mg/dL (0.00-1.00); Blood Urea Nitrogen 8 mg/dL (7-18); Calcium 8.7 mg/dL (8.5-10.1); Carbon Dioxide 24 mmol/L (21-32); Chloride 91 mmol/L (98-108); Estimated Glomerular Filt Rate > 60; Glucose 90 mg/dL (70-99); Osmolality Calculated 262 mOsm/kg (285-295); Potassium 4.4 mmol/L (3.5-5.1); Sodium 127 mmol/L (136-145); Total Protein 6.5 g/dL (6.4-8.2)
== END 2021-06-16 23:59 | disposition home or self-care (01) ==
LOC: CHSLAB 07:51
PROVIDERS: PCP Internal Medicine; Visit Provider Internal Medicine
DX: E87.1 Hypo-osmolality and hyponatremia (principal)
CPT/HCPCS: 36415; 80053

== ENCOUNTER 2021-04-07 12:28 | Outpatient (CLI) | payer OTHER, SELFPAY ==
[2021-04-07 12:42] LABS: Add Urine Microscopic? NO; Appearance Urine Clear (Clear); Bilirubin Urine Negative (Negative); Blood Urine Negative (Negative); Color Urine Light Yellow (Yellow); Glucose Urine UA Negative (Negative); Ketones Urine Negative (Negative); Leukocyte Esterase Ur Negative (Negative); Nitrate Urine Negative (Negative); Protein Urine Negative (Negative); Specific Grav Ur 1.015 (1.010-1.020); Urobilinogen Urine 0.2 mg/dL (0.2-1.0)
[2021-04-07 13:50] LABS: Albumin Level 4.3 g/dL (3.4-5.0); Anion Gap 11 mmol/L (8-16); Blood Urea Nitrogen 19 mg/dL (7-18); Calcium 9.4 mg/dL (8.5-10.1); Carbon Dioxide 27 mmol/L (21-32); Chloride 93 mmol/L (98-108); Estimated Glomerular Filt Rate > 60; Glucose 89 mg/dL (70-99); Osmolality Calculated 273 mOsm/kg (285-295); Phosphorus 4.7 mg/dL (2.6-4.7); Potassium 5.4 mmol/L (3.5-5.1); Sodium 131 mmol/L (136-145); Thyroid Stimulating Hormone 1.51 uIU/mL (0.36-3.74)
[2021-04-09 21:52] LABS: Osmolality, Urine 440 mOsm/kg (50-1200)
[2021-04-10 08:58] LABS: Cortisol Random 10.3 mcg/dL (***)
== END 2021-04-07 12:29 | disposition home or self-care (01) ==
LOC: CHSLAB 12:30
PROVIDERS: PCP Internal Medicine; Visit Provider Internal Medicine Nephrology
DX: E87.1 Hypo-osmolality and hyponatremia (principal)
CPT/HCPCS: 36415; 80069; 81003; 82533; 83930; 83935; 84443

== ENCOUNTER 2021-04-22 08:35 | Outpatient (CLI) | payer OTHER, SELFPAY ==
[2021-04-22 09:28] LABS: Albumin Level 4.1 g/dL (3.4-5.0); Anion Gap 11 mmol/L (8-16); Blood Urea Nitrogen 11 mg/dL (7-18); Carbon Dioxide 26 mmol/L (21-32); Chloride 94 mmol/L (98-108); Estimated Glomerular Filt Rate > 60; Glucose 97 mg/dL (70-99); Osmolality Calculated 271 mOsm/kg (285-295); Phosphorus 3.7 mg/dL (2.6-4.7); Potassium 4.9 mmol/L (3.5-5.1); Sodium 131 mmol/L (136-145)
== END 2021-04-22 08:36 | disposition home or self-care (01) ==
PROVIDERS: PCP Internal Medicine; Visit Provider Internal Medicine Nephrology
DX: E87.1 Hypo-osmolality and hyponatremia (principal)
CPT/HCPCS: 36415; 80069

== ENCOUNTER 2021-05-10 06:37 | Outpatient (RCR) | payer OTHER, SELFPAY | END 2021-08-08 23:59 | disposition home or self-care (01) | LOC: ANHVASCINF 06:37 | PROVIDERS: PCP Internal Medicine; Visit Provider Internal Medicine | DX: E87.1 Hypo-osmolality and hyponatremia (principal) | CPT/HCPCS: 36415; 82533; 96372; J0834 ==

== ENCOUNTER 2021-07-28 08:43 | Outpatient (CLI) | payer OTHER, SELFPAY ==
[2021-07-28 09:04] LABS: Add Urine Microscopic? NO; Appearance Urine Clear (Clear); Bilirubin Urine Negative (Negative); Blood Urine Negative (Negative); Color Urine Light Yellow (Yellow); Glucose Urine UA Negative (Negative); Ketones Urine Negative (Negative); Leukocyte Esterase Ur Negative (Negative); Nitrate Urine Negative (Negative); Protein Urine Negative (Negative); Urobilinogen Urine 0.2 mg/dL (0.2-1.0)
[2021-07-28 09:05] LABS: Basophils Percent Auto 1.4 % (0.0-1.0); Eosinophils Absolute Auto 0.13 K/mm3 (0.02-0.50); Eosinophils Percent Auto 1.8 % (1.0-6.0); Hematocrit 41.7 % (40.0-54.0); Hemoglobin 14.2 g/dL (14.0-18.0); Immature Granulocyte Absolute 0.03 K/mm3 (0.00-0.00); Immature Granulocyte Percent A 0.4 % (0.0-0.0); Lymphocytes Percent Auto 28.3 % (18.0-42.0); Mean Corpuscular HGB Conc 34.1 g/dL (32.0-36.0); Mean Corpuscular Hemoglobin 32.1 pg (27.0-31.0); Mean Corpuscular Volume 94.1 fL (78.0-102.0); Mean Platelet Volume 7.9 fl (8.7-11.0); Monocytes Absolute Auto 0.67 K/mm3 (0.10-0.90); Monocytes Percent Auto 9.5 % (2.0-11.0); Neutrophils Absolute Auto 4.1 K/mm3 (1.7-7.2); Neutrophils Percent Auto 58.6 % (50.0-70.0); Platelet Count Result 355 K/mm3 (150-420); Red Blood Count 4.43 M/mm3 (4.70-6.10); Red Cell Distribution Width 12.9 % (11.6-14.4); White Blood Count 7.1 K/mm3 (4.8-10.8)
[2021-07-28 10:02] LABS: Alanine Aminotransferase 26 U/L (16-63); Alkaline Phosphatase 55 U/L (46-116); Anion Gap 8 mmol/L (8-16); Aspartate Amino Transferase 15 U/L (15-37); Bilirubin,Total 0.6 mg/dL (0.00-1.00); Blood Urea Nitrogen 14 mg/dL (7-18); Carbon Dioxide 29 mmol/L (21-32); Chloride 96 mmol/L (98-108); Cholesterol 162 mg/dL (0-200); Estimated Glomerular Filt Rate > 60; Glucose 91 mg/dL (70-99); HDL Direct 79 mg/dL (40-60); LDL Cholesterol Calculated 65 mg/dL (<130); Osmolality Calculated 276 mOsm/kg (285-295); Prostate Specific Antigen 0.4 ng/mL (< OR = 4.0); Sodium 133 mmol/L (136-145); Total Protein 6.9 g/dL (6.4-8.2); Triglycerides 89 mg/dL (0-150)
== END 2021-07-28 08:44 | disposition home or self-care (01) ==
LOC: CHSLAB 08:46
PROVIDERS: PCP Internal Medicine; Visit Provider Internal Medicine
DX: I73.9 Peripheral vascular disease, unspecified (principal); I10 Essential (primary) hypertension; E87.1 Hypo-osmolality and hyponatremia; Z12.5 Encounter for screening for malignant neoplasm of prostate
CPT/HCPCS: 36415; 80053; 80061; 81003; 84153; 85025; G0103

== ENCOUNTER 2021-11-28 11:01 | Outpatient (CLI) | payer OTHER, SELFPAY ==
[2021-11-28 11:45] LABS: Alanine Aminotransferase 26 U/L (16-63); Albumin Level 3.8 g/dL (3.4-5.0); Alkaline Phosphatase 69 U/L (46-116); Anion Gap 9 mmol/L (8-16); Aspartate Amino Transferase 18 U/L (15-37); Bilirubin,Total 0.6 mg/dL (0.00-1.00); Blood Urea Nitrogen 14 mg/dL (7-18); Calcium 8.9 mg/dL (8.5-10.1); Carbon Dioxide 27 mmol/L (21-32); Chloride 97 mmol/L (98-108); Estimated Glomerular Filt Rate 50; Glucose 100 mg/dL (70-99); Osmolality Calculated 276 mOsm/kg (285-295); Potassium 5.2 mmol/L (3.5-5.1); Sodium 133 mmol/L (136-145); Total Protein 6.8 g/dL (6.4-8.2)
== END 2021-11-28 11:02 | disposition home or self-care (01) ==
LOC: CHSLAB 11:04
PROVIDERS: PCP Internal Medicine; Visit Provider Internal Medicine
DX: I10 Essential (primary) hypertension (principal)
CPT/HCPCS: 36415; 80053

== ENCOUNTER 2021-12-10 10:32 | Outpatient (RCR) | payer OTHER, SELFPAY ==
[2021-11-11 11:33] LABS: Alanine Aminotransferase 26 U/L (16-63); Albumin Level 3.9 g/dL (3.4-5.0); Alkaline Phosphatase 79 U/L (46-116); Anion Gap 13 mmol/L (8-16); Aspartate Amino Transferase 18 U/L (15-37); Bilirubin,Total 0.5 mg/dL (0.00-1.00); Blood Urea Nitrogen 17 mg/dL (7-18); Carbon Dioxide 26 mmol/L (21-32); Chloride 92 mmol/L (98-108); Estimated Glomerular Filt Rate > 60; Glucose 185 mg/dL (70-99); Osmolality Calculated 278 mOsm/kg (285-295); Potassium 4.4 mmol/L (3.5-5.1); Sodium 131 mmol/L (136-145); Total Protein 7.1 g/dL (6.4-8.2)
[2021-12-10 11:26] LABS: Anion Gap 8 mmol/L (8-16); Blood Urea Nitrogen 14 mg/dL (7-18); Calcium 8.9 mg/dL (8.5-10.1); Carbon Dioxide 29 mmol/L (21-32); Chloride 97 mmol/L (98-108); Estimated Glomerular Filt Rate > 60; Glucose 84 mg/dL (70-99); Osmolality Calculated 277 mOsm/kg (285-295); Potassium 4.8 mmol/L (3.5-5.1); Sodium 134 mmol/L (136-145)
[2021-12-10 13:42] LABS: Alanine Aminotransferase 24 U/L (16-63); Albumin Level 3.8 g/dL (3.4-5.0); Alkaline Phosphatase 78 U/L (46-116); Aspartate Amino Transferase 17 U/L (15-37); Bilirubin,Total 0.3 mg/dL (0.00-1.00); Total Protein 6.8 g/dL (6.4-8.2)
== END 2022-02-09 23:59 | disposition home or self-care (01) ==
LOC: CHSLAB 10:32
PROVIDERS: PCP Internal Medicine; Visit Provider Internal Medicine
DX: E87.1 Hypo-osmolality and hyponatremia (principal)
CPT/HCPCS: 36415; 80048; 80053

== ENCOUNTER 2022-01-24 08:53 | Outpatient (CLI) | payer OTHER, SELFPAY ==
--- NOTE | ~2022-01-24 | CT_ITS ---
EXAMINATION: CT lung screening DATE: 01/24/2022 09:10 INDICATION: Personal history of nicotine dependence, current smoker with 66 pack year history TECHNIQUE: Computed tomography (CT) of the chest was performed without intravenous contrast. The dose -length product (DLP) was 71.51 mGy-cm. Automated exposure control and iterative reconstruction techn ique were employed. COMPARISON: 01/14/2021 FINDINGS: There is moderate emphysema. There is a new 8 mm spiculated nodule of the right upper lobe on image 41. There is a stable 7 mm nodule in the medial aspect of the right upper lobe on image 35. There is no pleural effusion or pneumothorax. Calcified pulmonary nodules and calcified subcarinal ly mph nodes are consistent with old granulomatous disease. Calcified coronary artery atherosclerosis is noted. No pathologically enlarged thoracic lymph nodes are identified. The heart size is normal. The re is mild bilateral gynecomastia. IMPRESSION: 1. Lung-RADS category 4B: Findings for which additional diagnostic testing and/or tissue sampling is recommended. Reviewed, dictated and finalized at location F. IMPRESSION: 1. Lung-RADS category 4B: Findings for which additional diagnostic testing and/ or tissue sampling is recommended.
== END 2022-01-24 08:54 | disposition home or self-care (01) ==
LOC: CHSIMG 08:53
PROVIDERS: PCP Internal Medicine; Visit Provider Internal Medicine
DX: Z12.2 Encounter for screening for malignant neoplasm of respiratory organs (principal); Z87.891 Personal history of nicotine dependence
CPT/HCPCS: 71271

== ENCOUNTER 2022-03-31 09:16 | Outpatient (CLI) | payer OTHER, SELFPAY | END 2022-03-31 09:17 | disposition home or self-care (01) | LOC: CHSCARD 09:17 | PROVIDERS: PCP Internal Medicine | DX: J43.9 Emphysema, unspecified (principal) | CPT/HCPCS: 94060; 94726; 94729 ==

== ENCOUNTER 2022-05-11 08:35 | Outpatient (CLI) | payer OTHER, SELFPAY ==
[2022-05-11 09:51] LABS: Alanine Aminotransferase 25 U/L (16-63); Albumin Level 4.2 g/dL (3.4-5.0); Alkaline Phosphatase 67 U/L (46-116); Anion Gap 10 mmol/L (8-16); Aspartate Amino Transferase 20 U/L (15-37); Bilirubin,Total 0.9 mg/dL (0.00-1.00); Blood Urea Nitrogen 11 mg/dL (7-18); Carbon Dioxide 25 mmol/L (21-32); Chloride 89 mmol/L (98-108); Estimated Glomerular Filt Rate > 60; Glucose 91 mg/dL (70-99); Osmolality Calculated 257 mOsm/kg (285-295); Potassium 4.7 mmol/L (3.5-5.1); Sodium 124 mmol/L (136-145); Total Protein 6.9 g/dL (6.4-8.2)
== END 2022-05-11 08:36 | disposition home or self-care (01) ==
PROVIDERS: PCP Internal Medicine; Visit Provider Internal Medicine
DX: E87.1 Hypo-osmolality and hyponatremia (principal)
CPT/HCPCS: 36415; 80053

== ENCOUNTER 2022-05-16 08:40 | Outpatient (CLI) | payer OTHER, SELFPAY ==
[2022-05-16 09:12] LABS: Albumin Level 3.9 g/dL (3.4-5.0); Anion Gap 7 mmol/L (8-16); Blood Urea Nitrogen 9 mg/dL (7-18); Calcium 8.9 mg/dL (8.5-10.1); Carbon Dioxide 27 mmol/L (21-32); Chloride 90 mmol/L (98-108); Estimated Glomerular Filt Rate > 60; Glucose 105 mg/dL (70-99); Osmolality Calculated 256 mOsm/kg (285-295); Phosphorus 3.3 mg/dL (2.6-4.7); Sodium 124 mmol/L (136-145)
== END 2022-05-16 08:41 | disposition home or self-care (01) ==
LOC: CHSLAB 08:44
PROVIDERS: PCP Internal Medicine; Visit Provider Internal Medicine Nephrology
DX: E87.1 Hypo-osmolality and hyponatremia (principal)
CPT/HCPCS: 36415; 80069

== ENCOUNTER 2022-08-21 08:46 | Outpatient (CLI) | payer OTHER, SELFPAY ==
--- NOTE | ~2022-08-21 | CT_ITS ---
EXAMINATION:CT diagnostic chest wo con DATE: 08/21/2022 09:12 INDICATION: Solid nodule of lung, 6 mm to 8 mm in diameter. TECHNIQUE: Computed tomography (CT) of the chest was performed without intravenous contrast. Automate d exposure control and iterative reconstruction technique were employed. The dose-length product (DLP ) was 65.47 mGy-cm. COMPARISON: Chest CT 01/24/2022 FINDINGS: There is severe emphysema. There is a 12 mm nodule in right upper lobe that previously chalo ured 8 mm. Calcified pulmonary nodules and calcified hilar and mediastinal lymph nodes are consistent with old granulomatous disease. There is a 7 mm nodule in right upper lobe without change. The heart size is normal. There are coronary artery calcifications. No pericardial effusion. There is mild tho racic spondylosis. IMPRESSION: 1. Worsened 12 mm nodule in right lung upper lobe suspicious for primary bronchogenic carcinoma. CT-g uided biopsy is recommended. 2. Severe emphysema. Reviewed, dictated and finalized at location A. GER COMPETITIVE INTELLIGENCE IMPRESSION: 1. Worsened 12 mm nodule in right lung upper lobe suspicious for primary bronch ogenic carcinoma. CT-guided biopsy is recommended. 2. Severe emphysema.
== END 2022-08-21 08:47 | disposition home or self-care (01) ==
LOC: CHSIMG 08:47
PROVIDERS: PCP Internal Medicine; Visit Provider Thoracic Surgery (Cardiothoracic Vascular Surgery)
DX: R91.1 Solitary pulmonary nodule (principal)
CPT/HCPCS: 71250

== ENCOUNTER 2022-10-17 08:30 | Outpatient (CLI) | payer OTHER, SELFPAY ==
[2022-10-17 10:59] LABS: Albumin Level 3.8 g/dL (3.4-5.0); Anion Gap 8 mmol/L (8-16); Blood Urea Nitrogen 12 mg/dL (7-18); Calcium 8.9 mg/dL (8.5-10.1); Carbon Dioxide 27 mmol/L (21-32); Chloride 100 mmol/L (98-108); Estimated Glomerular Filt Rate > 60; Glucose 100 mg/dL (70-99); Osmolality Calculated 279 mOsm/kg (285-295); Phosphorus 4.1 mg/dL (2.6-4.7); Potassium 4.8 mmol/L (3.5-5.1); Sodium 135 mmol/L (136-145)
--- NOTE | 2022-10-19 12:40 | WPDPFTINT ---
PFT Procedure Performed PFT Procedure Performed Spirometry with Pre/Post Bronchodilator Plethysmography (Lung Vol) Diffusing Cap (DLCO) Flow Vol Loop PFT Interpretation DOS: 10/17/2022 REQUESTING: Dr. Bertram Barker REASON FOR TESTING: lung cancer PULMONARY FUNCTION TESTS Results are reliable and reproducible. Spirometry: pre bronchodilator FEV1 is 1.99 L, 65% predicted, moderately reduced. Pre bronchodilator FVC is 4.31 L, 109% predicted. FEV1/FVC ratio is decreased 46%. After bronchodilator, there is a 5% drop in FVC and a 4% drop in FEV1. The FEV1/ FVC remains the same. Lung volumes: Total lung capacity is 7.21 L, 119% predicted, upper limit normal. Residual volume is 2.9 L, 132% predicted, mildly elevated consistent with air trapping. RV/TLC 40%, increased. Raw 182%, increased. Diffusion: DLCO 11.0,58% predicted, moderately reduced. DLCO/VA is 1.66, 44% predicted. Flow volume loop: There is coving of the expiratory limb consistent with an obstructive process. IMPRESSION: This study shows a mild obstructive ventilatory impairment, no significant response to bronchodilator, mild air trapping and a moderate diffusion impairment. This is consistent with emphysema. Ventilatory impairment is now mild instead of severe. Diffusion impairment is now moderate, was normal on March 31, 2022. last PFT. Compared to a prior study 03/31/2022, results are similar. FEV1 was 47% predicted, now 65%, improved. There was a minimal response to bronchodilator. Lung volumes were similar. Total lung capacity was 6.92 L, 114%. RV was 2.96 L, 134%. DLCO was 92% and corrected for alveolar volume was 69%. Beronica Krishnan MD
== END 2022-10-17 08:31 | disposition home or self-care (01) ==
PROVIDERS: PCP Internal Medicine; Visit Provider Thoracic Surgery (Cardiothoracic Vascular Surgery)
DX: C34.90 Malignant neoplasm of unspecified part of unspecified bronchus or lung (principal); R84.2 Abnormal level of other drugs, medicaments and biological substances in specimens from respiratory organs and thorax
CPT/HCPCS: 36415; 80069; 94060; 94726; 94729

== ENCOUNTER 2022-11-16 08:31 | Outpatient (CLI) | payer OTHER, SELFPAY ==
[2022-11-16 09:50] LABS: Albumin Level 4.3 g/dL (3.4-5.0); Anion Gap 6 mmol/L (8-16); Blood Urea Nitrogen 9 mg/dL (7-18); Calcium 8.8 mg/dL (8.5-10.1); Carbon Dioxide 28 mmol/L (21-32); Chloride 97 mmol/L (98-108); Estimated Glomerular Filt Rate > 60; Glucose 91 mg/dL (70-99); Osmolality Calculated 270 mOsm/kg (285-295); Phosphorus 3.7 mg/dL (2.6-4.7); Potassium 4.3 mmol/L (3.5-5.1); Sodium 131 mmol/L (136-145); Thyroid Stimulating Hormone 1.58 uIU/mL (0.36-3.74)
[2022-11-16 09:51] LABS: Vitamin B12 > 2000 pg/mL (193-986)
== END 2022-11-16 08:32 | disposition home or self-care (01) ==
LOC: CHSLAB 08:32
PROVIDERS: PCP Internal Medicine; Visit Provider Internal Medicine Nephrology
DX: R53.83 Other fatigue (principal); E87.1 Hypo-osmolality and hyponatremia
CPT/HCPCS: 36415; 80069; 82607; 82746; 84443

== ENCOUNTER 2023-01-18 12:24 | Outpatient (CLI) | payer OTHER, SELFPAY ==
--- NOTE | ~2023-01-18 | CT_ITS ---
CT Scan of the Chest without Contrast: Clinical Indication: Lung cancer Technique: Contiguous sections were acquired throughout the chest without intravenous contrast. Dose reduction technique was used on this scan by utilizing automated exposure control and iterative recon struction technique. The dose-length product (DLP) was 152.13 mGy-cm. COMPARISON: 08/21/2022 Findings: There is no evidence of any significant mediastinal, hilar or axillary lymphadenopathy. Calcified sub carinal lymph nodes present. There are atherosclerotic calcifications of the aorta. Extensive coronar y artery calcifications are present. There is no evidence of pleural or pericardial effusion. Recently noted spiculated right upper lobe nodule is decreased in size, now measuring 6 mm in diamete r (axial image 50). Numerous scattered calcified granulomas are present. Moderate to advanced emphyse ma present. Images through the upper abdomen reveal no abnormalities. Impression: Spiculated right upper lobe nodule is decreased in size, now measuring 6 mm, consistent with partial response to therapy. Moderate to advanced emphysema. Evidence of perirenal disc disease. Reviewed, dictated and finalized at location . Impression: Spiculated right upper lobe nodule is decreased in size, now measuring 6 mm, co nsistent with partial response to therapy. Moderate to advanced emphysema. Evidence of perirenal disc disease.
== END 2023-01-18 12:25 | disposition home or self-care (01) ==
LOC: CHSIMG 12:25
PROVIDERS: PCP Internal Medicine
DX: C34.11 Malignant neoplasm of upper lobe, right bronchus or lung (principal); J43.9 Emphysema, unspecified; M51.84 Other intervertebral disc disorders, thoracic region
CPT/HCPCS: 71250

== ENCOUNTER 2023-05-05 07:14 | Outpatient (CLI) | payer OTHER, SELFPAY ==
[2023-05-05 08:26] LABS: Anion Gap 10 mmol/L (8-16); Blood Urea Nitrogen 17 mg/dL (7-18); Calcium 9.2 mg/dL (8.5-10.1); Carbon Dioxide 25 mmol/L (21-32); Chloride 97 mmol/L (98-108); Estimated Glomerular Filt Rate > 60; Glucose 95 mg/dL (70-99); Osmolality Calculated 275 mOsm/kg (285-295); Phosphorus 3.9 mg/dL (2.6-4.7); Sodium 132 mmol/L (136-145)
== END 2023-05-05 07:15 | disposition home or self-care (01) ==
LOC: CHSLAB 07:16
PROVIDERS: PCP Internal Medicine; Visit Provider Internal Medicine Nephrology
DX: E87.1 Hypo-osmolality and hyponatremia (principal)
CPT/HCPCS: 36415; 80069

== ENCOUNTER 2023-07-27 13:28 | Outpatient (CLI) | payer OTHER, SELFPAY ==
[2023-07-27 13:55] LABS: Albumin Level 3.8 g/dL (3.4-5.0); Anion Gap 13 mmol/L (8-16); Blood Urea Nitrogen 13 mg/dL (7-18); Calcium 9.2 mg/dL (8.5-10.1); Carbon Dioxide 25 mmol/L (21-32); Chloride 95 mmol/L (98-108); Estimated Glomerular Filt Rate > 60; Glucose 92 mg/dL (70-99); Osmolality Calculated 276 mOsm/kg (285-295); Phosphorus 4.2 mg/dL (2.6-4.7); Potassium 4.3 mmol/L (3.5-5.1); Sodium 133 mmol/L (136-145)
== END 2023-07-27 13:29 | disposition home or self-care (01) ==
LOC: CHSLAB 13:29
PROVIDERS: PCP Internal Medicine; Visit Provider Internal Medicine Nephrology
DX: E87.1 Hypo-osmolality and hyponatremia (principal)
CPT/HCPCS: 36415; 80069

== ENCOUNTER 2023-08-07 08:54 | Outpatient (CLI) | payer OTHER, SELFPAY ==
--- NOTE | ~2023-08-07 | CT_ITS ---
CT Scan of the Chest without Contrast: Clinical Indication: Lung cancer Technique: Contiguous sections were acquired throughout the chest without intravenous contrast. Dose reduction technique was used on this scan by utilizing automated exposure control and iterative recon struction technique. The dose-length product (DLP) was 147.11 mGy-cm. COMPARISON: 01/18/2023 Findings: There is no evidence of any significant mediastinal, hilar or axillary lymphadenopathy. There are ath erosclerotic calcifications of the aorta and coronary arteries. There is no evidence of pleural or pericardial effusion. Numerous calcified pulmonary nodules are present, compatible with granulomas. There is an 8 mm noncal cified nodule just adjacent to the right mediastinal border (axial image 41), essentially stable from prior exam. Probable tiny residual spiculated right upper lobe pulmonary nodule stable from prior ex am (axial image 46). Advanced emphysema present. Images through the upper abdomen reveal no abnormalities. Impression: Probable tiny residual spiculated nodule in the right upper lobe, compatible with sequela of treated disease. 8 mm noncalcified nodule just abutting the right mediastinal border, stable dating back to at least . Advanced COPD with evidence of prior granulomatous disease. Reviewed, dictated and finalized at location . 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 8 mm noncalcified nodule just abutting the right mediastinal border, stable abdirahman ing back to at least 01/14/2021. Advanced COPD with evidence of prior granulomatous disease.
== END 2023-08-07 08:55 | disposition home or self-care (01) ==
LOC: CHSIMG 08:55
PROVIDERS: PCP Internal Medicine
DX: C34.11 Malignant neoplasm of upper lobe, right bronchus or lung (principal); R91.1 Solitary pulmonary nodule; J44.9 Chronic obstructive pulmonary disease, unspecified
CPT/HCPCS: 71250

== ENCOUNTER 2023-10-29 09:18 | Outpatient (CLI) | payer OTHER, SELFPAY ==
[2023-10-29 10:04] LABS: Albumin Level 3.9 g/dL (3.4-5.0); Anion Gap 11 mmol/L (8-16); Blood Urea Nitrogen 10 mg/dL (7-18); Calcium 8.9 mg/dL (8.5-10.1); Carbon Dioxide 26 mmol/L (21-32); Chloride 94 mmol/L (98-108); Estimated Glomerular Filt Rate > 60; Glucose 138 mg/dL (70-99); Osmolality Calculated 273 mOsm/kg (285-295); Phosphorus 3.7 mg/dL (2.6-4.7); Potassium 4.9 mmol/L (3.5-5.1); Sodium 131 mmol/L (136-145)
== END 2023-10-29 09:19 | disposition home or self-care (01) ==
PROVIDERS: PCP Internal Medicine; Visit Provider Internal Medicine Nephrology
DX: E87.1 Hypo-osmolality and hyponatremia (principal)
CPT/HCPCS: 36415; 80069

== ENCOUNTER 2024-01-14 08:52 | Outpatient (CLI) | payer OTHER, SELFPAY ==
[2024-01-14 09:07] LABS: Basophils Absolute Auto 0.09 K/mm3 (0.00-0.10); Basophils Percent Auto 1.3 % (0.0-1.0); Eosinophils Percent Auto 1.4 % (1.0-6.0); Hematocrit 41.2 % (40.0-54.0); Hemoglobin 13.9 g/dL (14.0-18.0); Immature Granulocyte Absolute 0.03 K/mm3 (0.00-0.00); Immature Granulocyte Percent A 0.4 % (0.0-0.0); Lymphocytes Absolute Auto 1.39 K/mm3 (1.10-4.50); Mean Corpuscular HGB Conc 33.7 g/dL (32-36); Mean Platelet Volume 7.8 fl (8.7-11.0); Monocytes Absolute Auto 0.61 K/mm3 (0.10-0.90); Monocytes Percent Auto 8.8 % (2.0-11.0); Neutrophils Absolute Auto 4.73 K/mm3 (1.70-7.20); Neutrophils Percent Auto 68.1 % (50.0-70.0); Platelet Count Result 319 K/mm3 (150-420); Red Blood Count 4.48 M/mm3 (4.70-6.10); Red Cell Distribution Width 13.2 % (11.6-14.4)
[2024-01-14 11:04] LABS: Albumin Level 3.9 g/dL (3.4-5.0); Anion Gap 10 mmol/L (4-12); Blood Urea Nitrogen 6 mg/dL (7-18); Calcium 8.7 mg/dL (8.5-10.1); Carbon Dioxide 25 mmol/L (21-32); Chloride 91 mmol/L (98-108); Estimated Glomerular Filt Rate > 60; Glucose 106 mg/dL (70-99); Osmolality Calculated 259 mOsm/kg (285-295); Phosphorus 4.1 mg/dL (2.6-4.7); Potassium 5.2 mmol/L (3.5-5.1); Prostate Specific Antigen 0.5 ng/mL (< OR = 4.0); Sodium 126 mmol/L (136-145)
== END 2024-01-14 08:53 | disposition home or self-care (01) ==
PROVIDERS: Internal Medicine Nephrology; PCP Internal Medicine; Visit Provider Internal Medicine
DX: Z00.00 Encounter for general adult medical examination without abnormal findings (principal); E87.1 Hypo-osmolality and hyponatremia
CPT/HCPCS: 36415; 80069; 84153; 85025; 92567; 99199; G0103

== ENCOUNTER 2024-02-26 08:22 | Outpatient (CLI) | payer OTHER, SELFPAY ==
--- NOTE | ~2024-02-26 | CT_ITS ---
CT Scan of the Chest without Contrast: Clinical Indication: Lung cancer Technique: Contiguous sections were acquired throughout the chest without intravenous contrast. Dose reduction technique was used on this scan by utilizing automated exposure control and iterative recon struction technique. The dose-length product (DLP) was 144.39 mGy-cm. COMPARISON: 08/07/2023 Findings: There is no evidence of any significant mediastinal, hilar or axillary lymphadenopathy. There are pro bable extensive coronary artery calcifications. There is no evidence of pleural or pericardial effusion. Moderate to advanced emphysema present. Stable 7 mm right upper lobe pulmonary nodule abutting the me diastinum. The trachea (axial image 40). Stable calcified granulomas bilaterally. Area of possible mi ld distortion the right upper lobe is unchanged. Images through the upper abdomen reveal relatively atrophic right kidney, and extensive atherosclerot ic calcifications. Impression: Stable probable post therapy change/treated disease in the right upper lobe. Stable 7 mm right upper lobe pulmonary nodule adjacent to the mediastinum, as detailed above. Evidence of prior granulomatous disease. Emphysema, as above. Reviewed, dictated and finalized at location M. Impression: Stable probable post therapy change/treated disease in the right upper lobe. Stable 7 mm right upper lobe pulmonary nodule adjacent to the mediastinum, as d etailed above. Evidence of prior granulomatous disease. Emphysema, as above.
== END 2024-02-26 08:23 | disposition home or self-care (01) ==
LOC: CHSIMG 08:23
PROVIDERS: PCP Internal Medicine
DX: C34.11 Malignant neoplasm of upper lobe, right bronchus or lung (principal); R91.1 Solitary pulmonary nodule; J43.9 Emphysema, unspecified
CPT/HCPCS: 71250

== ENCOUNTER 2024-04-30 14:04 | Outpatient (CLI) | payer OTHER, SELFPAY ==
[2024-04-30 14:45] LABS: Albumin Level 3.2 g/dL (3.4-5.0); Anion Gap 11 mmol/L (4-12); Blood Urea Nitrogen 15 mg/dL (7-18); Calcium 8.8 mg/dL (8.5-10.1); Carbon Dioxide 23 mmol/L (21-32); Chloride 95 mmol/L (98-108); Estimated Glomerular Filt Rate > 60; Glucose 124 mg/dL (70-99); Osmolality Calculated 269 mOsm/kg (285-295); Phosphorus 3.8 mg/dL (2.6-4.7); Potassium 5.1 mmol/L (3.5-5.1); Sodium 129 mmol/L (136-145)
== END 2024-04-30 14:05 | disposition home or self-care (01) ==
LOC: CHSLAB 14:05
PROVIDERS: PCP Internal Medicine; Visit Provider Internal Medicine Nephrology
DX: E87.1 Hypo-osmolality and hyponatremia (principal); R53.83 Other fatigue
CPT/HCPCS: 36415; 80069

== ENCOUNTER 2024-05-09 06:54 | Emergency (ER) | payer OTHER, SELFPAY ==
[2024-05-09] VITALS (29 sets, daily range): BP systolic 107–175; BP diastolic 73–104; PULSE 69–122; RESP 17–30; TEMP 36–36.6; O2SAT 91–100
--- NOTE | ~2024-05-09 | XR_ITS ---
Portable chest x-ray Comparison: 04/08/2020 Clinical History: Shortness of breath Findings: Large right pneumothorax is present, with extensive central collapse of the right lung. Th ere is underlying COPD with numerous small calcified granulomas bilaterally. Cardiomediastinal silho uette is stable. Bones and soft tissues are unremarkable. Impression: Large right pneumothorax. No evidence of tension pneumothorax. Underlying COPD and numerous small calcific granulomas. Case discussed with Dr. Ramirez at the time of this reading. Reviewed, dictated and finalized at location M. Impression: Large right pneumothorax. No evidence of tension pneumothorax. Underlying COPD and numerous small calcific granulomas. Case discussed with Dr. Ramirez at the time of this reading.
--- NOTE | ~2024-05-09 | CT_ITS ---
EXAMINATION: CT chest abdomen pelvis w con DATE: 05/09/2024 08:27 INDICATION: Shortness of breath. Lung cancer. TECHNIQUE: Computed tomography (CT) of the chest, abdomen, and pelvis was performed with 100 mL Omnip aque 350 intravenous contrast. Automated exposure control and iterative reconstruction technique were employed. The dose-length product was 303.53 mGy-cm. COMPARISON: Chest CT 02/26/2024 FINDINGS: CHEST CT: There is severe emphysema. There is a large right pneumothorax. There is a small right pleural effusi on. There are airspace opacities in right lung. There are patchy airspace opacities in the basilar le ft lower lobe. Calcified bilateral pulmonary nodules and calcified mediastinal lymph nodes are consis tent with old granulomatous disease. The heart size is normal. There are coronary artery calcificatio ns. No pericardial effusion. There is mild thoracic spondylosis. ABDOMEN/PELVIS CT: The liver, gallbladder, spleen, and adrenal glands are normal. There are calcifications in the pancre as, consistent with chronic pancreatitis. There is moderate atrophy of right kidney. There is cortica l thinning of left kidney. There is calcified atherosclerosis of the aorta and many of the other lawrence pau. 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 There is a patent aortobifem bypass graft. The prostate is mildly enlarged. There are no dilated loop s of bowel. The appendix is normal. There are no pathologically enlarged lymph nodes. There is no asc ites. There is mild lumbar spondylosis. IMPRESSION: 1. Large right hydropneumothorax. 2. Severe emphysema. 3. Airspace opacities in the basilar left lower lobe, consistent with pneumonia. 4. Airspace opacities and volume loss in right lung, consistent with atelectasis without or with supe rimposed pneumonia. Reviewed, dictated and finalized at location A. IMPRESSION: 1. Large right hydropneumothorax. 2. Severe emphysema. 3. Airspace opacities in the basilar left lower lobe, consistent with pneumonia . 4. Airspace opacities and volume loss in right lung, consistent with atelectasi s without or with superimposed pneumonia.
--- NOTE | ~2024-05-09 | XR_ITS ---
EXAMINATION: XR chest-chest tube insert/pos DATE: 05/09/2024 10:34 INDICATION: Right pneumothorax status post chest tube placement. TECHNIQUE: A single frontal view of the chest was obtained. COMPARISON: Chest single view at 7:14 AM FINDINGS: There is a moderate-sized right pneumothorax. There are airspace opacities in right lung. T here are lucencies in the lungs, consistent with emphysema. Calcified left lung nodules and calcified left hilar lymph nodes are consistent with old granulomatous disease. There are airspace opacities a t left lung base. No pleural effusion. The heart size is normal. A right-sided chest tube is noted. IMPRESSION: 1. Moderate-sized right pneumothorax with interval improvement with chest tube. 2. Airspace opacities at left lung base, consistent with pneumonia. 3. Airspace opacities in right lung, consistent with atelectasis without or with superimposed pneumon ia. 4. Emphysema. Reviewed, dictated and finalized at location A. IMPRESSION: 1. Moderate-sized right pneumothorax with interval improvement with chest tube. 2. Airspace opacities at left lung base, consistent with pneumonia. 3. Airspace opacities in right lung, consistent with atelectasis without or wit h superimposed pneumonia. 4. Emphysema.
--- NOTE | 2024-05-09 07:04 | ED.SOB ---
HPI - SOB/Dyspnea General Chief Complaint: Shortness of Breath/Dyspnea <Andre Goinsver III, DO - Last Filed: 05/12/24 10:33> Stated Complaint: shortness of breath <Andre Wang III, DO - Last Filed: 05/12/24 10:33> Time Seen by Provider: 05/09/24 07:04 <Andre Wang III, DO - Last Filed: 05/12/24 10:33> History of Present Illness HPI Narrative: Pt awoke with SOB at 0600 this morning. Pt has non productive cough. Pt denies fever or CP. Pt has history of COPD and it feels like COPD flare up. Pt not on oxygen at home now needing 4L. <Andre Demarcus Goinsver III, DO - Last Filed: 05/12/24 10:33> Pt awoke with SOB at 0600 this morning. Pt has non productive cough. Pt denies fever or CP. Pt has history of COPD and it feels like COPD flare up. Pt not on oxygen at home now needing 4L. Additional information: Patient has been a lifelong heavy smoker and continues to smoke. This past October he had a spontaneous pneumothorax treated at [facility] in [place], reports a catheter was placed to re-expanded, they found him to have a lung nodule, biopsied, reports that it was cancerous, was subsequently treated with radiation, had had no surgery and no chemo. He reports since that time he has had a slow steady decline in his health, breathing, get short of breath so when trying to do anything, and just feels kind of wiped out. This morning around 2:00 a.m. he woke up, reports he had kind of a coughing fit, went back to sleep, and when he woke up this morning he was significantly more short of breath and prior to his coughing fit. His daughter drove him in to be evaluated. 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 Denied recent abdominal pain, nausea vomiting, diarrhea constipation, dysuria urgency or frequency. He reports chronic shortness of breath and chronic coughing and reports he has tried many different ways trying to stop smoking has just not been able to accomplish it. <Gibson Ramirez MD - Last Filed: 05/09/24 18:10> Related Data Allergies/Adverse Reactions: Allergies Allergy/AdvReac Type Severity Reaction Status Date / Time NO KNOWN DRUG ALLERGIES Allergy Y Uncoded 05/09/24 07:01 (Class Allergy) <Andre Wang III, DO - Last Filed: 05/12/24 10:33> Review of Systems Review of Systems: All systems reviewed & are unremarkable except as noted in HPI and below <Andredionisio Tracy Wang CARMEN, DO - Last Filed: 05/12/24 10:33> All systems reviewed & are unremarkable except as noted in HPI and below <Gibson Ramirez MD - Last Filed: 05/09/24 18:10> PMFSH Past Medical History Medical History: Medical History Alcohol abuse Anxiety Hypertension Hyponatremia <Andre Wang III, DO - Last Filed: 05/12/24 10:33> Surgical History Surgical History: Surgical History History of aorto-femoral bypass <Andre Wang III, DO - Last Filed: 05/12/24 10:33> Family History Family History: Family History Father Diabetes mellitus Sibling Family history of hypercholesterolemia Hypertension Family history of coronary artery disease <Andre Wang III, DO - Last Filed: 05/12/24 10:33> Social History Social History: Social History Smoking packs per day: 1 Smoking cigarettes per day: 20.0 Smoking status: Current every day smoker Tobacco type: cigarettes Alcohol intake: current Drinks per week: 15 Substance use: never Do You Feel Safe in your Home?: Yes Lack of Transportation: No Lack of Food: Never True Current Housing: I Have Housing Concerned About Future Housing:
[2024-05-09] MEDS: IPRATROPIUM 0.5 MG/ALBUTEROL SULFATE 2.5 MG AMPUL.NEB 3 ML INHALATION (07:12)
--- NOTE | 2024-05-09 07:15 | PC.NURSE ---
Per ERP [facility].
--- NOTE | 2024-05-09 07:19 | ECG_ITS ---
Test Date: 2024-05-09 07:14:14 Measurements Intervals [place] Rate: 106 P: 109 VA: 152 QRS: 42 QRSD: 81 T: 93 QT: 312 QTc: 416 Interpretive Statements SINUS TACHYCARDIA POSSIBLE RIGHT VENTRICULAR CONDUCTION DELAY [RSR (QR) IN V1/V2] PREVIOUS ANTEROSEPTAL [place] ABNORMAL ELECTROCARDIOGRAM No previous ECG available for comparison Electronically Signed On 05-12-2024 14:43:20 CDT by Rod Juarez M.D.
[2024-05-09 07:22] LABS: Basophils Absolute Auto 0.12 K/mm3 (0.00-0.10); Basophils Percent Auto 1.3 % (0.0-1.0); Eosinophils Absolute Auto 0.34 K/mm3 (0.02-0.50); Eosinophils Percent Auto 3.6 % (1.0-6.0); Hematocrit 41.6 % (40.0-54.0); Hemoglobin 13.8 g/dL (14.0-18.0); Immature Granulocyte Absolute 0.05 K/mm3 (0.00-0.00); Immature Granulocyte Percent A 0.5 % (0.0-0.0); Lymphocytes Absolute Auto 2.12 K/mm3 (1.10-4.50); Lymphocytes Percent Auto 22.3 % (18.0-42.0); Mean Corpuscular HGB Conc 33.2 g/dL (32-36); Mean Corpuscular Hemoglobin 30.1 pg (27.0-31.0); Mean Corpuscular Volume 90.6 fL (78.0-102.0); Mean Platelet Volume 8.1 fl (8.7-11.0); Monocytes Percent Auto 9.5 % (2.0-11.0); Neutrophils Absolute Auto 5.96 K/mm3 (1.70-7.20); Neutrophils Percent Auto 62.8 % (50.0-70.0); Platelet Count Result 501 K/mm3 (150-420); Red Blood Count 4.59 M/mm3 (4.70-6.10); Red Cell Distribution Width 12.4 % (11.6-14.4); White Blood Count 9.5 K/mm3 (4.8-10.8)
[2024-05-09 07:32] LABS: INR 0.9; Partial Thromboplastin Time 23.8 Sec (23.9-30.70); Prothrombin Time 9.9 Seconds (9.50-12.1)
[2024-05-09 07:41] LABS: Alanine Aminotransferase 21 U/L (16-63); Alkaline Phosphatase 115 U/L (46-116); Anion Gap 13 mmol/L (4-12); Aspartate Amino Transferase 20 U/L (15-37); Bilirubin,Total 0.5 mg/dL (0.00-1.00); Blood Urea Nitrogen 16 mg/dL (7-18); Calcium 8.6 mg/dL (8.5-10.1); Carbon Dioxide 23 mmol/L (21-32); Chloride 97 mmol/L (98-108); Estimated CRCL calculation 49 ml/min; Estimated Glomerular Filt Rate > 60; Glucose 187 mg/dL (70-99); NT Pro B Type Natriuretic Pept 599 pg/mL (0-125); Osmolality Calculated 282 mOsm/kg (285-295); Sodium 133 mmol/L (136-145); Total Protein 7.4 g/dL (6.4-8.2)
[2024-05-09 07:42] LABS: Troponin I 62.3 ng/L (0.00-60.4)
[2024-05-09 07:43] LABS: Potassium 5.1 mmol/L (3.5-5.1)
--- NOTE | 2024-05-09 08:03 | PC.NURSE ---
Per ERP, solumedrol canceled due to patient condition. Will re-order if needed at later time.
[2024-05-09 08:08] LABS: Magnesium 1.8 mg/dL (1.8-2.4)
--- NOTE | 2024-05-09 10:14 | PC.NURSE ---
0930: time out at bedside, RN, Jeremy and MD present. 0939: Lidocaine injected 0942: chest tube inserted 0950: Chest tube secured with sutures and dressing applied per by ERP. 1001: Water seal applied. Patient tolerated procedure well, states breathing has improved as well as back discomfort.
[2024-05-09 11:21] LABS: Appearance Pleural Fluid Cloudy (Clear); Color Pleural Fluid Red (Colorless); Pleural fluid source Pleural fluid
[2024-05-09 11:23] LABS: Nucleated Cell Pleural Fluid 8 /uL (0-1000); RBC Pleural Fluid 0 /uL (0-10000)
[2024-05-09 11:25] LABS: Lymphocytes Pleural Fluid 32 %; Neutrophils Pleural Fluid 68 % (0-25)
--- NOTE | 2024-05-11 13:41 | PC.NURSE ---
final chest tube pleurel fluid culture reviewed. no organisms seen. no change in plan of care
[2024-05-11 21:08] LABS: Adenosine Deaminase Pleural Fl 20.7 U/L (<9.2)
--- NOTE | 2024-05-14 12:40 | PC.NURSE ---
PRELIMINARY ANAEROBIC CULTURE RESULTS: NO ANAEROBES ISOLATED TO DATE, CONTINUE INCUBATION. FINAL AEROBIC CULTURE RESULTS: NO GROWTH. TO AWAIT FINAL RESULTS FOR ANAEROBIC CULTURE.
--- NOTE | 2024-05-15 12:42 | PC.NURSE ---
final plural fluid culture reviewed. no organisms seen. no change in plan of care
[2024-05-20 14:48] LABS: Albumin Pleural Fluid 2.3 g/dL; Amylase, Pleural Fluid 38 U/L; Glucose Pleural Fluid 78 mg/dL; Total Protein Pleural Fluid 3.6 g/dL
== END 2024-05-09 13:42 | disposition short-term general hospital (02) ==
PROVIDERS: Emergency Medicine; Emergency Provider Emergency Medicine; PCP Internal Medicine
DX: J93.83 Other pneumothorax (principal); J44.9 Chronic obstructive pulmonary disease, unspecified; I10 Essential (primary) hypertension; F17.210 Nicotine dependence, cigarettes, uncomplicated
CPT/HCPCS: 32551; 36415; 71045; 71260; 74177; 80053; 82042; 82150; 82945; 83615; 83735; 83880; 83986; 84157; 84311; 84478; 84484; 85025; 85610; 85730; 87070; 87075; 87205; 89051; 93005; 94640; 99285; Q9967

== ENCOUNTER 2024-09-11 09:04 | Outpatient (CLI) | payer OTHER, SELFPAY ==
[2024-09-11 09:19] LABS: Add Urine Microscopic? NO; Appearance Urine Clear (Clear); Basophils Absolute Auto 0.08 K/mm3 (0.00-0.10); Bilirubin Urine Negative (Negative); Blood Urine Negative (Negative); Color Urine Light Yellow (Yellow); Eosinophils Absolute Auto 0.08 K/mm3 (0.02-0.50); Glucose Urine UA Negative (Negative); Hematocrit 45.6 % (40.0-54.0); Hemoglobin 16.1 g/dL (14.0-18.0); Immature Granulocyte Absolute 0.03 K/mm3 (0.00-0.00); Immature Granulocyte Percent A 0.4 % (0.0-0.0); Ketones Urine Trace (Negative); Leukocyte Esterase Ur Negative (Negative); Lymphocytes Absolute Auto 1.55 K/mm3 (1.10-4.50); Lymphocytes Percent Auto 19.1 % (18.0-42.0); Mean Corpuscular HGB Conc 35.3 g/dL (32-36); Mean Corpuscular Hemoglobin 30.4 pg (27.0-31.0); Mean Corpuscular Volume 86.2 fL (78.0-102.0); Mean Platelet Volume 7.9 fl (8.7-11.0); Monocytes Absolute Auto 0.64 K/mm3 (0.10-0.90); Monocytes Percent Auto 7.9 % (2.0-11.0); Neutrophils Absolute Auto 5.72 K/mm3 (1.70-7.20); Neutrophils Percent Auto 70.6 % (50.0-70.0); Nitrate Urine Negative (Negative); Platelet Count Result 305 K/mm3 (150-420); Protein Urine Negative (Negative); Red Blood Count 5.29 M/mm3 (4.70-6.10); Red Cell Distribution Width 12.9 % (11.6-14.4); Urobilinogen Urine 0.2 mg/dL (0.2-1.0); White Blood Count 8.1 K/mm3 (4.8-10.8); pH Urine 5.5 (5.0-8.0)
[2024-09-11 10:44] LABS: Alanine Aminotransferase 34 U/L (16-63); Albumin Level 4.5 g/dL (3.4-5.0); Alkaline Phosphatase 84 U/L (46-116); Anion Gap 13 mmol/L (4-12); Aspartate Amino Transferase 32 U/L (15-37); Bilirubin,Total 0.6 mg/dL (0.00-1.00); Blood Urea Nitrogen 7 mg/dL (7-18); Calcium 9.7 mg/dL (8.5-10.1); Carbon Dioxide 24 mmol/L (21-32); Chloride 91 mmol/L (98-108); Cholesterol 189 mg/dL (0-200); Estimated Glomerular Filt Rate > 60; Glucose 92 mg/dL (70-99); HDL Direct 86 mg/dL (40-60); LDL Cholesterol Calculated 91 mg/dL (<130); Osmolality Calculated 264 mOsm/kg (285-295); Potassium 5.2 mmol/L (3.5-5.1); Prostate Specific Antigen 0.4 ng/mL (< OR = 4.0); Sodium 128 mmol/L (136-145); Thyroid Stimulating Hormone 0.93 uIU/mL (0.36-3.74); Total Protein 7.8 g/dL (6.4-8.2); Triglycerides 59 mg/dL (0-150)
== END 2024-09-11 09:05 | disposition home or self-care (01) ==
LOC: CHSLAB 09:07
PROVIDERS: PCP Internal Medicine; Visit Provider Internal Medicine
DX: Z00.00 Encounter for general adult medical examination without abnormal findings (principal); I10 Essential (primary) hypertension; I73.9 Peripheral vascular disease, unspecified
CPT/HCPCS: 36415; 80053; 80061; 81003; 84153; 84443; 85025; G0103

== ENCOUNTER 2024-10-24 09:21 | Outpatient (CLI) | payer OTHER, SELFPAY ==
[2024-10-24 10:04] LABS: Albumin Level 4.2 g/dL (3.4-5.0); Anion Gap 9 mmol/L (4-12); Blood Urea Nitrogen 13 mg/dL (7-18); Calcium 9.4 mg/dL (8.5-10.1); Carbon Dioxide 26 mmol/L (21-32); Chloride 92 mmol/L (98-108); Estimated Glomerular Filt Rate > 60; Glucose 99 mg/dL (70-99); Osmolality Calculated 264 mOsm/kg (285-295); Phosphorus 4.1 mg/dL (2.6-4.7); Sodium 127 mmol/L (136-145)
== END 2024-10-24 09:22 | disposition home or self-care (01) ==
LOC: CHSLAB 09:22
PROVIDERS: PCP Internal Medicine; Visit Provider Internal Medicine Nephrology
DX: E87.1 Hypo-osmolality and hyponatremia (principal)
CPT/HCPCS: 36415; 80069

== ENCOUNTER 2024-11-13 10:23 | Outpatient (CLI) | payer OTHER, SELFPAY ==
--- NOTE | ~2024-11-13 | CT_ITS ---
CT Scan of the Chest without Contrast: Clinical Indication: Lung cancer Technique: Contiguous sections were acquired throughout the chest without intravenous contrast. Dose reduction technique was used on this scan by utilizing automated exposure control and iterative recon struction technique. The dose-length product (DLP) was 148.89 mGy-cm. COMPARISON: 05/09/2024 and 02/26/2024 Findings: There is no evidence of any significant mediastinal, hilar or axillary lymphadenopathy. There are ath erosclerotic calcifications of the aorta and coronary arteries. Calcified subcarinal lymph nodes pres ent.. There is no evidence of pleural or pericardial effusion. Numerous calcified granulomas are present. Previously noted large right hydropneumothorax is complete ly resolved. Probable moderate emphysema. There is right apical scarring and possible mild posttreatm ent change. There is an 8 mm ovoid nodule in the medial right upper lobe adjacent to the mediastinum (axial image 31). Images through the upper abdomen reveal relatively atrophic right kidney as compared to the left. Impression: Moderate emphysema. Right apical scarring and possible mild posttreatment change. 8 mm medial right upper lobe nodule, stable since 02/26/2024. Extensive of prior granulomatous disease. Reviewed, dictated and finalized at [facility]. CAL CASH POSTER Impression: Moderate emphysema. Right apical scarring and possible mild posttreatment change. 8 mm medial right upper lobe nodule, stable since 02/26/2024. Extensive of prior granulomatous disease.
--- OUTSIDE RECORDS SUMMARY | 2024-11-13 10:47 | XMS_ITS | Encounter Summary ---
Author Organization [facility] Address [address] [place] [address] Care Team Providers Care Wool Sorter Name Role Phone Juarez Smith MD Primary Care Provider [phone] Encounter Details Date Type Department Care Team (Late st Contact Info) Description 05/22/2024 Hospital Follow-up Call [facility] Cardiovascular Care Unit [address] [place] [address] Celia Leach RN Social History Tobacco Use Types Packs/Day Years Used Date Smoking Tobacco: Never Passive Smoke Exposure: Never Smokeless Tobacco: Never OASIS D0700: Social Isolation Answer Da te Recorded Frequency of experiencing loneliness or isolatio n Never 05/23/2024 OASIS A1250: Transportation Answer Date Recorded Lack of Transportation (Medical) No 05/23/2024 Lack of Transportation (Non-Medical) No 05/23/2024 Patient Unable or Declines to Respond No 05/23/2024 OASIS B1300: Health Literacy Answer Dima e Recorded Frequency of needing help to read materials from doctor or pharmacy Rarely 05/23/2024 [facility] Utilities Answer Date Recorded In the past 12 months has [facility] [employer], oil, or water [employer] threatened to shut off services in your home? No 05/09/2024 Humiliation, Afraid, Rape, and Kick questionnair e Answer Date Recorded Within the last year, have y ou been afraid of your partner or ex-partner? No 05/09/2024 Within the last year, have y ou been humiliated or emotionally abused in other ways by your partner or ex-partner? No Within the last year, have y ou been kicked, hit, slapped, or otherwise physically hurt by your partner or ex-partner? No 05/09/2024 Within the last year, have y ou been raped or forced to have any kind of sexual activity by your partner or ex-partner? No 05/09/2024 Overall Financial Resource Strain (CARDIA) Answe r Date Recorded How hard is it for you to pa y for the very basics like food, housing, medical care, and heating? Not hard at all 05/09/2024 Hunger Vital Sign Answer Date Recorded Within the past 12 months, y ou worried that your food would run out before you got the money to buy more. Never true 05/09/20 24 Within the past 12 months, t he food you bought just didn't last and you didn't have money to get more. Never true 05/09/2024 PRAPARE - Transportation Answer Date Re corded In the past 12 months, has l ack of transportation kept you from medical appointments or from getting medications? No 06/2024 In the past 12 months, has l ack of transportation kept you from meetings, work, or from getting things needed for daily living? No 05/09/2024 Housing Stability Vital Sign Answer Dima e Recorded In the last 12 months, was t here a time when you were not able to pay the mortgage or rent on time? No 05/09/2024 In the past 12 months, how m any times have you moved where you were living? 0 05/09/2024 At any time in the past [facility], were you homeless or living in a snf (including now)? 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 Answer Date of Assessment Author Status No 05/09/2024 3:12 PM CDT Anuradha Aldana LPN Active * Do you have serious difficulty walking or climbing stairs? Answer Date of Assessment Author Status No 05/09/2024 3:12 PM CDAnuradha Robins LPN Active * Do you have difficulty dressing or bathing? Answer Date of Assessment Author Status No 05/09/2024 3:12 PM CDAnuradha Robins LPN Active * Because of a physical, mental, or emotional condition, do you have difficulty doing errands alone such as visiting a doctor's office or shopping? Answer Date of Assessment Author Status No 05/09/2024 3:12 PM CDAnuradha Robins LPN Active documented as of this encounter Mental Status * Because of a physical, mental, or emotional condition, do you have serious difficulty concentrating, remembering, or making decisions? 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 Radiation Oncology at [address] [address] Romie Conklin MD [address] [place] [address] documented as of this encounter Goals Goal Patient Goal Type Associated Problems Recent Progress Patient-Stated? Author Safety - demonstrates understanding of home safety measures Lifestyle Laura Morales, RN Safety Patient/family will have appropriate support at home upon discharge Lifestyle Laura Morales RN documented as of this encounter Visit Diagnoses Not on filedocumented in this encounter Care Teams Wool Sorter Relationship Specialty Start Date End Date Juarez Smith MD [address] [place] [address] PCP - General INTERNAL MEDICINE 03/21/22 documented as of this encounter
--- OUTSIDE RECORDS SUMMARY | 2024-11-13 10:47 | XMS_ITS | Clinical Summary ---
Author Organization [facility] Address [address] [place] [address] Care Team Providers Care Rn Documentation Name Role Phone Juarez Smith MD Primary Care Provider [phone] Allergies No known active allergies Medications Umeclidinium [place] (INCRUSE ELLIPTA) 62.5 MCG/ACT AEROSOL POWDER, BREATH ACTIVATEDIndicat ions:Prevention of COPD Exacerbation Inhale 62.5 mcg into the lungs. Indications: Prevention of COPD Worsening One puff daily for shortness of breath. Active ipratropium-albu terol (COMBIVENT RESPIMAT) 20-100 MCG/ACT inhalerIndicatio ns:Shortness of breath Inhale 1 puff into the lungs 4 (four) times daily. Indications: Shortness of breath Please provide assembled. Active OXYGEN CONCENTRATOR SUPPLY, DME,Indications: Prevention of COPD Exacerbation 1 Device by Nasal route continuous. Nasal cannula, 3 with activity, portable oxygen concentrator, stationary oxygen concentrator 1 Device 4 Active oxyCODONE immediate release (ROXICODONE) 5 MG immediate release tabletIndication s:Acute Pain < 7 Day Supply Take 1 tablet (5 mg total) by mouth every 6 (six) hours as needed. Indications: Acute Pain < 7 Day Supply 21 tablet 4 Active Active Problems Problem Noted Date Diagnosed Date Spontaneous pneumothorax 05/09/2024 Pneumothorax 05/09/2024 Social History Tobacco Use Types Packs/Day Years Used Date Smoking Tobacco: Never Passive Smoke Exposure: Never Smokeless Tobacco: Never Tobacco Cessation:Counseling Given: Not Answered OASIS D0700: Social Isolation Answer Da te Recorded Frequency of experiencing loneliness or isolatio n Never 06/13/2024 OASIS A1250: Transportation Answer Date Recorded Lack of Transportation (Medical) Yes 06/13/2024 Lack of Transportation (Non-Medical) No 06/13/2024 Patient Unable or Declines to Respond No 06/13/2024 OASIS B1300: Health Literacy Answer Dima e Recorded Frequency of needing help to read materials from doctor or pharmacy Never 06/13/2024 [facility] Utilities Answer Date Recorded In the past 12 months has th e [employer], gas, oil, or water company threatened to shut off services in your [...] any time in the past 12 m [facility], were you homeless or living in a [facility] (including now)? 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 Legal Sex Male 11:06 AM CDT Gender Identity Not on file Sexual Orientation Not on file Last Filed Vital Signs Vital Sign Reading Time Taken Comments Blood Pressure 108/72 06/13/2024 11:45 AM CDT Pulse 94 06/13/2024 11:45 AM CDT Temperature 36.8 C (98.2 F) 06/13/2024 11:45 AM CDT Respiratory Rate 18 06/13/2024 11:45 AM CDT Oxygen Saturation 98% 06/13/2024 11:45 AM CDT Inhaled Oxygen Concentration - - Weight 59 kg (130 lb) 05/23/2024 11:40 AM CDT Height 170.2 cm (5' 7 ) 05/23/2024 11:40 AM CDT Body Mass Index 20.36 05/23/2024 11:40 AM CDT Plan of Treatment Upcoming Encounters Date Type Department Care Team (Late st Contact Info) Description 11/18/2024 10:30 AM SPRAY DYER Appointment [facility] Radiation Oncology at [address] [address] Romie Conklin MD [address] [place] [address] Health Maintenance Due Date Last Done Comments Colorectal Cancer Screening Colonoscopy (10 Years) 1961 Annual Physical 1964 Hepatitis C 12/24/1979 DTaP, Tdap and Td Vaccines ( 1 - Tdap) 1980 Zoster Vaccines (1 of 2) 1980 Pneumococcal Vaccine: Pediatrics (0 to 5 Years) and At-Risk Patients (6 to 64 Years) (2 of 2 - PCV) 11/28/2016 11/29/2015 COVID-19 Vaccine (3 - Modern a risk series) 03/26/2021 02/26/2021, 01/29/2021 RSV Immunization or 60+ Years (1 - Risk 60-74 years 1-dose series) 2021 Influenza Adult (#1) 2024 06/01/2017 Meningococcal B Vaccine Aged Out No l onger eligible based on patient's age to complete this topic Meningococcal Vaccine Aged Out No rajiv destinee eligible based on patient's age to complete this topic RSV Immunizations Under 20 Months Aged Out No longer eligible b ased on patient's age to complete this topic Goals Goal Patient Goal Type Associated Problems Recent Progress Patient-Stated? Author Safety - demonstrates understanding of home safety measures Lifestyle Laura Morales, RN Safety Patient/family will have appropriate support at home upon discharge Lifestyle Laura Morales, RN Insurance [employer] Advance Directives * Full Code (Latest Code Status on File) Date Activated Date Inactivated Comments 05/23/2024 3:38 PM * Full Code Date Activated Date Inactivated Comments 05/09/2024 3:27 PM 05/20/2024 5:03 PM Care Teams Rn Documentation Relationship Specialty Start Date End Date Juarez Smith MD [address] [place] [address] PCP - General INTERNAL MEDICINE 03/21/22
--- OUTSIDE RECORDS SUMMARY | 2024-11-13 10:47 | XMS_ITS | Clinical Summary ---
Author Organization [facility] Address [address] [place] [address] Phone Care Team Providers Care Quality Eng Name Role Phone Juarez Smith MD Primary Care Provider [phone] Allergies No known active allergies Medications Medication Sig Dispensed Refills Start Date End Date Status ASPIRIN 81 PO TAKE 1 TABLET BY MOUTH EVERY DAY 03/23/2021 Active albuterol HFA (PROVENTIL HFA) 108 (90 Base) MCG/ACT inhaler INHALE 1 2 PUFFS EVERY 4 HOURS NEEDED/WITH ADAPTER 01/11/2021 Active furosemide (LASIX) 40 MG tablet Take 40 mg by mouth 1 (one) time each day in the morning 03/01/2021 Active lisinopril (PRINIVIL) 20 MG tablet Take 20 mg by mouth 1 (one) time each day 03/14/2021 Active nicotine (NICODERM CQ) 14 MG/24HR APPLY 1 PATCH DAILY. REMOVE OLD PATCH BEFORE APPLY NEW PATCH 03/03/2021 Active thiamine (VITAMIN B-1) 100 MG tablet Take 100 mg by mouth 1 (one) time each day 03/23/2021 Active cyanocobalamin (VITAMIN B-12) 1000 MCG tablet Take 1,000 mcg by mouth 1 (one) time each day Active Active Problems Problem Noted Date Diagnosed Date Hyposmolality and/or hyponatremia 03/31/2021 Alcohol abuse 12/28/2020 Cerebral ischemia 12/28/2020 Peripheral vascular disease 12/28/2020 Tobacco dependence syndrome 12/28/2020 Family History Medical History Relation Comments Hyponatremia Neg Hx Social History Tobacco Use Types Packs/Day Years Used Date Smoking Tobacco: Heavy Smoker Smokeless Tobacco: Never Alcohol Use Standard Drinks/Week Comments Yes 30 (1 standard drink = 0.6 oz pu re alcohol) Sex and Gender Information Value Date Recorded Sex Assigned at Not on file Gender Identity Not on file Sexual Orientation Not on file Last Filed Vital Signs Vital Sign Reading Time Taken Comments Blood Pressure 126/70 05/15/2022 10:06 AM CDT Pulse 72 05/15/2022 10:06 AM CDT Temperature 36.6 C (97.8 F) 05/15/2022 10:06 AM CDT Respiratory Rate - - Oxygen Saturation - - Inhaled Oxygen Concentration - - Weight 59.9 kg (132 lb) 05/15/2022 10:06 AM CDT Height 170.2 cm (5' 7 ) 05/15/2022 10:06 AM CDT Body Mass Index 20.67 05/15/2022 10:06 AM CDT Plan of Treatment Health Maintenance Due Date Last Done Comments Pneumococcal PPSV23 Highest Risk Adult (1 of 3 - PCV13 ) 1980 Influenza Vaccine (#1) 2024 Care Teams Quality Eng Relationship Specialty Start Date End Date Juarez Smith MD [address] [place] [address] PCP - General Internal Medicine 02/21/21
== END 2024-11-13 10:24 | disposition home or self-care (01) ==
PROVIDERS: PCP Internal Medicine
DX: C34.11 Malignant neoplasm of upper lobe, right bronchus or lung (principal); J43.9 Emphysema, unspecified; R91.8 Other nonspecific abnormal finding of lung field
CPT/HCPCS: 71250

== ENCOUNTER 2025-05-07 08:30 | Outpatient (CLI) | payer OTHER, SELFPAY ==
--- OUTSIDE RECORDS SUMMARY | 2025-05-07 08:38 | XMS_ITS | Clinical Summary ---
Author Organization [facility] Address [address] [place] [id number] Phone Care Team Providers Care New Autos Delivery Driver Name Role Phone Juarez Smith MD Primary Care Provider [phone] Allergies No known active allergies Medications ASPIRIN 81 PO TAKE 1 TABLET BY [...] Recorded Sex Assigned at Not on file Legal Sex Male 10:21 AM MDT Gender Identity Not on file Sexual Orientation [...] 10:06 AM CDT Height 170.2 cm (5' 7) 05/15/2022 10:06 AM CDT Body Mass Index 20.67 05/15/2022 10:06 AM CDT Plan of Treatment Health Maintenance Due Date Last Done Comments Influenza Vaccine (#1) 2025 Insurance Care Teams New Autos Delivery Driver Relationship Specialty Start Date End Date Juarez Smith MD [address] [place] [address] PCP - General Internal Medicine 02/21/21
[2025-05-07 09:53] LABS: Albumin Level 4.4 g/dL (3.5-5.1); Anion Gap 8 mmol/L (4-12); Blood Urea Nitrogen 11 mg/dL (9-20); Calcium 9.4 mg/dL (8.4-10.2); Carbon Dioxide 23 mmol/L (22-30); Chloride 100 mmol/L (98-107); Estimated Glomerular Filt Rate > 60; Glucose 95 mg/dL (65-110); Osmolality Calculated 271 mOsm/kg (285-295); Potassium 5.0 mmol/L (3.4-5.0); Sodium 131 mmol/L (137-145)
== END 2025-05-07 08:31 | disposition home or self-care (01) ==
LOC: CHSLAB 08:32
PROVIDERS: PCP Internal Medicine; Visit Provider Internal Medicine Nephrology
DX: E87.1 Hypo-osmolality and hyponatremia (principal)
CPT/HCPCS: 36415; 80069

== ENCOUNTER 2025-06-22 08:50 | Outpatient (CLI) | payer OTHER, SELFPAY ==
--- NOTE | ~2025-06-22 | CT_ITS ---
EXAMINATION:CT diagnostic chest wo con DATE: 06/22/2025 09:08 INDICATION: Malignant neoplasm of upper lobe of right lung. TECHNIQUE: Computed tomography (CT) of the chest was performed without intravenous contrast. Automated exposure control and iterative reconstruction technique were employed. The dose-length product (DLP) was 161.46 mGy-cm. COMPARISON: Chest CT 11/13/2024, 01/24/2022 FINDINGS: There is severe emphysema. Calcified pulmonary nodules and calcified mediastinal lymph nodes are consistent with old granulomatous disease. There is an 8 mm nodule in right upper lobe, stable from 01/24/2022, likely benign. There are airspace and interstitial opacities in the right upper lobe, consistent with radiation pneumonitis. There is a staple line in right lung apex. There is a pneumatocele in left lower lobe with area of thickened wall measuring 11 x 5 x 3 mm (mean 6 mm). No pleural effusion. There is moderate atrophy of right kidney. Partially visualized is an abdominal aortic bypass graft. There is bilateral gynecomastia. There is severe cervical spondylosis and mild thoracic spo ndylosis. IMPRESSION: 1. 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 2. Severe emphysema. 3. Worsened 6 mm nodule in left lung lower lobe suspicious for primary bronchogenic carcinoma. Noncontrast low-dose chest CT is recommended in 3 months. Reviewed, dictated and finalized at location E. IMPRESSION: 1. 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 2. Severe emphysema. 3. Worsened 6 mm nodule in left lung lower lobe suspicious for primary bronchog enic carcinoma. Noncontrast low-dose chest CT is recommended in 3 months.
--- OUTSIDE RECORDS SUMMARY | 2025-06-22 09:33 | XMS_ITS | Clinical Summary ---
Author Organization [facility] Address [address] [place] [address] Phone Care Team Providers Care Net Mobile Developer Name Role Phone Juarez Smith MD Primary Care Provider [phone] Allergies No known active allergies Medications ASPIRIN [...] Influenza Vaccine (#1) 2025 Insurance Care Teams Net Mobile Developer Relationship Specialty Start Date End Date Juarez Smith MD [address] [place] [address] PCP - General Internal Medicine 02/21/21
--- OUTSIDE RECORDS SUMMARY | 2025-06-22 09:33 | XMS_ITS | Encounter Summary ---
Author Organization [facility] Address [address] [place] [address] Care Team Providers Care Instrument Room Technician Name Role Phone Juarez Smith MD Primary Care Provider [phone] Encounter Details Date Type Department Care Team (Late st Contact Info) Description 05/22/2024 Hospital Follow-up Call [facility] Cardiovascular Care Unit [address] [place] [address] Celia Leach RN Social History [...] materials from doctor or pharmacy Rarely 05/23/2024 [facility] Utilities Answer Date Recorded In the past 12 months has th e [employer] gas, oil, or water Contently threatened to shut off services in your [...] any time in the past 12 m [facility], were you homeless or living in a detention (including now)? 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 Author Safety - demonstrates understanding of home safety measures Lifestyle Laura Morales RN Safety Patient/family will have appropriate support at home upon discharge Lifestyle Laura Morales RN documented as of this encounter Visit Diagnoses Not on filedocumented in this encounter Care Teams Instrument Room Technician Relationship Specialty Start Date End Date Juarez Smith MD [address] [place] [address] PCP - General INTERNAL MEDICINE 03/21/22 documented as of this encounter
--- OUTSIDE RECORDS SUMMARY | 2025-06-22 09:33 | XMS_ITS | Clinical Summary ---
Author Organization [facility] Address [facility] [place] [address] Care Team Providers Care Spanish Language Lecturer Name Role Phone Juarez Smith MD Primary Care Provider [phone] Allergies No known active allergies Medications Umeclidinium [place] (INCRUSE ELLIPTA) 62.5 MCG/ACT AEROSOL POWDER, BREATH [...] materials from doctor or pharmacy Never 06/13/2024 [facility] Utilities Answer Date Recorded In the past 12 months has th e [employer], oil, or water company threatened to shut [...] any time in the past 12 m [facility], were you homeless or living in a [facility] (including now)? 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 Legal Sex Male 11:06 AM CDT Gender [...] 11:40 AM CDT Height 170.2 cm (5' 7) 05/23/2024 11:40 AM CDT Body Mass Index 20.36 05/23/2024 11:40 AM CDT Plan of Treatment Health Maintenance Due Date Last Done Comments Colorectal Cancer Screening Colonoscopy (10 Years) 1961 Annual Physical 1964 Hepatitis C 12/24/1979 DTaP, Tdap and Td Vaccines ( 1 - Tdap) 1980 Zoster Vaccines (1 of 2) 1980 Pneumococcal Vaccine: 50+ Years (2 of 2 - PCV) 11/28/2016 11/29/2015 COVID-19 Vaccine (3 - Modern a risk series) 03/26/2021 02/26/2021, 01/29/2021 RSV Immunization or 60+ Years (1 - Risk 60-74 years 1-dose series) 2021 Meningococcal B Vaccine Aged Out No l [...] home upon discharge Lifestyle Laura Morales RN Insurance [employer] Advance Directives * Full Code (Latest Code Status on File) Date Activated Date Inactivated Comments 05/23/2024 3:38 PM * Full Code Date Activated Date Inactivated Comments 05/09/2024 3:27 PM 05/20/2024 5:03 PM Care Teams Spanish Language Lecturer Relationship Specialty Start Date End Date Juarez Smith MD [address] [place] [address] PCP - General INTERNAL MEDICINE 03/21/22
== END 2025-06-22 08:51 | disposition home or self-care (01) ==
LOC: CHSIMG 08:51
PROVIDERS: PCP Internal Medicine
DX: C34.11 Malignant neoplasm of upper lobe, right bronchus or lung (principal); J84.10 Pulmonary fibrosis, unspecified; J43.9 Emphysema, unspecified; R91.1 Solitary pulmonary nodule
CPT/HCPCS: 71250